=== PATIENT | male | born 1960 | race Caucasian/White ===

== ENCOUNTER 2017-10-05 23:37 | Observation (INO) | payer OTHER ==
[2017-10-06 00:17] LABS: Absolute Lymphocytes (CBC) 3.7 K/uL (0.7-4.9); Absolute Monocytes 2.1 K/uL (0.1-1.3); Absolute Neutrophil 8.1 K/uL (1.8-8.0); Basophils % 1.2 % (0-1.3); Eosinophils % 1.8 % (0-4.4); Hematocrit 42.9 % (39.6-49.0); MCH 29.7 pg (27.0-35.0); MPV 7.7 fL (7.6-11.3); Monocytes % 14.3 % (3.3-12.3); RBC Red Blood Cell Count 4.93 M/uL (4.33-5.43)
[2017-10-06 00:21] LABS: Protime INR 1.01
[2017-10-06] MEDS ORDERED: ASPIRIN 81 MG CHEWABLE TABLET ONE (00:27)
[2017-10-06 00:29] LABS: Potassium 3.8 mEq/L (3.6-5.0)
[2017-10-06 00:35] LABS: Albumin 3.9 g/dL (3.2-5.5); Bilirubin Direct 0.1 mg/dL (0-0.2); Bilirubin Total 0.6 mg/dL (0.3-1.2); Magnesium 1.9 mg/dL (1.8-2.5); Protein, Total 8.2 g/dL (6.0-8.3)
--- NOTE | 2017-10-06 01:13 | EDPHYS ---
Physician Documentation [facility] Name: Andrez Orantes Age: 57 yrs Sex: Male : 1960 Arrival Date: 10/05/2017 Time: 23:39 Bed 4 Private MD: ED Physician Malcom Schaefer Historical: - Allergies: 10/05 23:56 PENICILLINS; tl2 - Home Meds: 23:56 aspirin 81 mg Oral chew 1 tab once daily [Active]; atorvastatin 80 mg oral tab 1 tab tl2 once daily [Active]; metoprolol tartrate 25 mg oral tab .5 tabs 2 times per day [Active]; ticagrelor oral 90 mg oral 1 tab 2 times per day [Active]; Chantix 1 mg oral tab 1 tab 2 times per day [Active]; albuterol sulfate 2.5 mg /3 mL (0.083 %) Inhl nebu 3 mL 3 times per day [Active]; cyclobenzaprine 10 mg Oral tab 1 tab bedtime [Active]; lisinopril-hydrochlorothiazide 20-25 mg oral tab 1 tab once daily [Active]; methocarbamol 750 mg Oral tab 1 tab 4 times per day [Active]; Phenergan Oral 25 mg every 6 hours [Active]; cyanocobalamin (vitamin B-12) 1,000 mcg/15 mL oral liqd [Active]; Novi 5-325 mg Oral tab 2 tabs every 6 hours [Active]; gabapentin 300 mg oral cap 1 cap bedtime [Active]; - PMHx: 23:56 Asthma; basal cell carcinoma; COPD; Hypertension; interstitial lung disease; Myocardial tl2 infarction; - Immunization history:: Adult Immunizations up to date. - Social history:: Smoking status: Patient/guardian denies using tobacco, the patient reports quitting approximately 0 years ago, stopped smoking 5 days ago. Vital Signs: 23:56 BP 139 / 76; Pulse 81; Resp 20; Temp 97.9; Pulse Ox 95% on R/A; Weight 154.22 kg; tl2 Height 5 ft. 8 in. (172.72 cm); Pain 5/10; 10/06 00:54 BP 120 / 63; Pulse 82; Resp 18; Pulse Ox 97% on R/A; mt 01:48 BP 101 / 59; Pulse 72; Resp 14; Pulse Ox 96% on R/A; tl2 10/05 23:56 Body Mass Index 51.70 (154.22 kg, 172.72 cm) tl2 MDM: 10/05 23:48 Patient medically screened. ca 10/06 00:03 Order name: Basic Metabolic Panel ca 10/06 00:03 Order name: BNP ca 10/06 00:03 Order name: CBC with Diff ca 10/06 00:03 Order name: CPK ca 10/06 00:03 Order name: LFT's ca 10/06 00:03 Order name: Magnesium ca 10/06 00:03 Order name: PT-INR ca 10/06 00:03 Order name: Troponin (emerg Dept Use Only) ca 10/06 00:27 Order name: CBC with Automated Diff EDAZ 10/06 00:29 Order name: Protime (+INR) EDAZ 10/06 00:30 Order name: Basic Metabolic Panel EDAZ 10/06 00:36 Order name: Liver (Hepatic) Function EDMS 10/06 00:36 Order name: Creatine Phosphokinase EDAZ 10/06 00:36 Order name: Magnesium EDAZ 10/06 00:03 Order name: EKG; Complete Time: 00:05 ca 10/06 00:03 Order name: Cardiac monitoring; Complete Time: 00:04 ca 10/06 00:03 Order name: EKG - Nurse/Tech; Complete Time: 00:04 ca 10/06 00:03 Order name: IV Saline Lock; Complete Time: 00:23 ca 10/06 00:03 Order name: Labs collected and sent; Complete Time: 00:23 ca 10/06 00:03 Order name: O2 Per Protocol; Complete Time: 00:04 ca 10/06 00:03 Order name: O2 Sat Monitoring; Complete Time: 00:04 ca 10/06 00:03 Order name: Chest Pa And Lat (2 Views) XRAY ca 10/06 00:52 Order name: Troponin (Emerg Dept Use Only) EDAZ 10/06 00:54 Order name: BNP B-Type Natriuretic Peptide EDMS Administered Medications: 10/06 00:22 Drug: Aspirin Chewable Tablet 162 mg Route: PO; tl2 01:59 Follow up: Response: No adverse reaction tl2 00:22 Drug: Nitroglycerin 0.4 mg Route: Sublingual; tl2 01:59 Follow up: Response: No adverse reaction tl2 Disposition: 10/06/17 01:12 Hospitalization ordered by Riccardo Newman for Observation. Preliminary diagnosis are chest pain, shortness of breath. - Bed requested for Telemetry/MedSurg (observation). - Status is Observation. tl2 - Condition is Stable. - Problem is new. - Symptoms have improved. UTI on Admission? No Addendum: 10/18/2017 16:48 Addendum: CC: Shoulder pain. HPI: 57 yo M s/p MN 2 weeks ago with 100% blockage, s/p w a stents. c/o bilateral shoulder pain with tingling and numbness in both hands and fingers x 2 days. intermittent. lasts 10-15 min at at time. denies SOB or chest pain. states came in because wants to be sure he is ok. PMHx: Asthma. basal cell carcinoma. COPD. HTN. interstitial lung disease. MN. SHx: denies ETOH, tobacco, or recreational drug use. PSurgHx: s/p cardiac stents. All: PCN. Meds: ASA. atorvostatin. metoprolol. albuterol. chantix. lisinopril. HCTZ. ROS: noted for shoulder pain. bilateral numbness and tingling in upper extremities. otherwise all other systems reviewed and negative. Exam: Const: NAD. HEENT: normocephalic. neck supple. throat clear. mucosa moist. CVS: RRR. no murmurs. Chest: diminished BS bibasilar area. Abd: obese. soft. non-tender. Ext: no swelling or edema. non-tender. Neuro: CN II-XII intact. no deficits. Psych: pleasant. affect nml. DDx: r/o ACS. consider CHF. plan: monitor. ASA. EKG. CXR. labs. reassess. plan to admit for further adina by cardiology. pt s/p MN with stents with symptoms concerning for angina. Results: reviewed. discussed admission to [facility]. Pt accepted. Dx: chest pain. Signatures: Dispatcher [employer] Earlene Garcia RN RN Shelley Harry RN RN tl2 Malcom Schaefer MD MD wa
--- NOTE | 2017-10-06 01:13 | ER ---
Nurse's Notes [facility] Name: Andrez Orantes Age: 57 yrs Sex: Male : 1960 Arrival Date: 10/05/2017 Time: 23:39 Bed 4 Private MD: Diagnosis: chest pain;shortness of breath Presentation: 10/05 23:46 Presenting complaint: Patient states: I had a W[place] 2 weeks ago and had 100% blockage. I tl2 have pain in both of my shoulders and my arms feel numb. Pain is similar to when I had a [place]. Pt denies chest pain or shortness of breath. Transition of care: patient was not received from another setting of care. Onset of symptoms was October 05, 2017. Care prior to arrival: None. 23:46 Method Of Arrival: EMS: [facility] tl2 23:46 Acuity: SALINA 3 tl2 Triage Assessment: 23:56 General: Appears in no apparent distress. comfortable, Behavior is calm, cooperative, tl2 appropriate for age. Pain: Complains of pain in ALAN shoulders, back Pain Quality of pain is described as aching. Neuro: Level of Consciousness is awake, alert, obeys commands, Oriented to person, place, time, situation. Cardiovascular: Denies chest pain, Heart tones S1 S2 present Capillary refill < 3 seconds Rhythm is sinus rhythm with unifocal PVCs. Respiratory: Airway is patent Respiratory effort is even, unlabored, Respiratory pattern is regular, symmetrical, Denies shortness of breath. GI: No signs and/or symptoms were reported involving the gastrointestinal system. : No signs and/or symptoms were reported regarding the genitourinary system. Derm: Skin is pink, warm \T\ dry. Historical: - Allergies: 23:56 PENICILLINS; tl2 - Home Meds: 23:56 aspirin 81 mg Oral chew 1 tab once daily [Active]; atorvastatin 80 mg oral tab 1 tab tl2 once daily [Active]; metoprolol tartrate 25 mg oral tab .5 tabs 2 times per day [Active]; ticagrelor oral 90 mg oral 1 tab 2 times per day [Active]; Chantix 1 mg oral tab 1 tab 2 times per day [Active]; albuterol sulfate 2.5 mg /3 mL (0.083 %) Inhl nebu 3 mL 3 times per day [Active]; cyclobenzaprine 10 mg Oral tab 1 tab bedtime [Active]; lisinopril-hydrochlorothiazide 20-25 mg oral tab 1 tab once daily [Active]; methocarbamol 750 mg Oral tab 1 tab 4 times per day [Active]; Phenergan Oral 25 mg every 6 hours [Active]; cyanocobalamin (vitamin B-12) 1,000 mcg/15 mL oral liqd [Active]; Mart 5-325 mg Oral tab 2 tabs every 6 hours [Active]; gabapentin 300 mg oral cap 1 cap bedtime [Active]; - PMHx: 23:56 Asthma; basal cell carcinoma; COPD; Hypertension; interstitial lung disease; Myocardial tl2 infarction; - Immunization history:: Adult Immunizations up to date. - Social history:: Smoking status: Patient/guardian denies using tobacco, the patient reports quitting approximately 0 years ago, stopped smoking 5 days ago. Screenin/25 00:00 Abuse screen: Denies threats or abuse. Nutritional screening: No deficits noted. tl2 Tuberculosis screening: No symptoms or risk factors identified. Fall Risk Fall in past 12 months (25 points). IV access (20 points). Assessment: 00:00 General: see triage assessment. tl2 00:56 Reassessment: Patient appears in no apparent distress at this time. Patient and/or tl2 family updated on plan of care and expected duration. Pain level reassessed. Patient is alert, oriented x 3, equal unlabored respirations, skin warm/dry/pink. 01:56 Reassessment: Patient appears in no apparent distress at this time. Patient and/or tl2 family updated on plan of care and expected duration. Pain level reassessed. Patient is alert, oriented x 3, equal unlabored respirations, skin warm/dry/pink. PT stable and ready for transport to floor. Vital Signs: 10/05 23:56 BP 139 / 76; Pulse 81; Resp 20; Temp 97.9; Pulse Ox 95% on R/A; Weight 154.22 kg; tl2 Height 5 ft. 8 in. (172.72 cm); Pain /10; 10/06 00:54 BP 120 / 63; Pulse 82; Resp 18; Pulse Ox 97% on R/A; mt 01:48 BP 101 / 59; Pulse 72; Resp 14; Pulse Ox 96% on R/A; tl2 0324 23:56 Body Mass Index 51.70 (154.22 kg, 172.72 cm) tl2 ED Course: 10/05 23:39 Patient arrived in ED. 23:46 Shelley Harry RN is Primary Nurse. tl2 23:48 Malcom Schaefer MD is Attending Physician. wa 23:49 Triage completed. tl2 23:56 Arm band placed on right wrist. tl2 10/06 00:00 Patient has correct armband on for positive identification. Bed in low position. Call tl2 light in reach. Side rails up X2. property assessment monitor on. Pulse ox on. NIBP on. 00:00 Patient maintains SpO2 saturation greater than 95% on room air. tl2 00:10 Inserted saline lock: 20 gauge in left antecubital area, using aseptic technique. tl2 placed by JORGE Fraser. 00:10 Patient admitted, IV remains in place. tl2 00:42 X-ray completed. Portable x-ray completed in exam room. Patient tolerated procedure la2 well. 01:11 Riccardo Newman MD is Hospitalizing Provider. wa 01:56 No provider procedures requiring assistance completed. tl2 Administered Medications: 00:22 Drug: Aspirin Chewable Tablet 162 mg Route: PO; tl2 01:59 Follow up: Response: No adverse reaction tl2 00:22 Drug: Nitroglycerin 0.4 mg Route: Sublingual; tl2 01:59 Follow up: Response: No adverse reaction tl2 Outcome: 01:12 Decision to Hospitalize by Provider. mo 01:58 Admitted to Med/surg accompanied by tech, via stretcher, with chart, Report called to 2 Jenny 01:58 Condition: stable 01:58 Discharge instructions given to patient, Instructed on the need for admit. 01:59 Patient left the ED. tl2 Signatures: Lety Peoples RN RN Shelley Harry RN RN tl2 Sue Fonseca mt, William, MD MD mo Cristiana Patten la
[2017-10-06 01:59] VITALS: BMI 52.6
--- NOTE | 2017-10-06 05:11 | EKG ---
Test Date: 2017-10-05 Test Time: 23:46:47 Ammonium Sulfate Operator: ADRIA MEASUREMENT RESULTS: Intervals: Rate: 81 ND: 166 QRSD: 94 QT: 400 QTc: 464 [place]: P: 50 ND: 166 QRS: 114 T: 98 INTERPRETIVE STATEMENTS: Normal sinus rhythm Anterolateral infarct, age undetermined Abnormal ECG No previous ECG available for comparison Electronically Signed On 10-06-17 05:10:43 CDT by Abdullahi Carlos
[2017-10-06 05:24] LABS: Urine Appearance CLEAR; Urine Bilirubin NEGATIVE (NEG); Urine Blood NEGATIVE (NEG); Urine Color YELLOW; Urine Glucose NEGATIVE (NEG); Urine Microscopic Reflex NO UMIC; Urine Protein NEGATIVE (NEG); Urine Specific Gravity 1.025 (1.005-1.030); Urine Urobilinogen 0.2 mg/dL (0.2-1.0); Urine pH 5.5 (5.0-7.0)
[2017-10-06] MEDS ORDERED: ALBUTEROL 2.5 MG/3 ML NEB SOL NEB PRN (05:47)
[2017-10-06] MEDS ORDERED: ACETAMINOPHEN 500 MG TAB PO PRN (05:47)
[2017-10-06] MEDS ORDERED: ONDANSETRON 4 MG/2 ML VIAL IV PRN (05:47)
[2017-10-06] MEDS ORDERED: IPRATROPIUM BROM 0.5MG/2.5ML NEB PRN (05:47)
[2017-10-06] MEDS ORDERED: CYCLOBENZAPRINE 10 MG TAB PO PRN (08:42)
--- NOTE | 2017-10-06 08:43 | RAD REPORT ---
EXAM DESCRIPTION: RAD - Chest Single View - 10/06/2017 12:44 am CLINICAL HISTORY: Chest pain, bilateral arm numbness, history of recent NH COMPARISON: None. TECHNIQUE: AP portable chest image was obtained 0029 hours . FINDINGS: No peripheral mass, consolidation or significant pulmonary edema pattern. Interstitial [place] are mildly prominent with baseline for the patient unknown. Heart and vasculature are normal. N o measurable pleural effusion and no pneumothorax. No gross bony abnormality seen. No acute aortic fi ndings suspected. IMPRESSION: No mass, consolidation or prominent failure or pulmonary edema pattern. Interstitial markings are prominent with baseline for the patient unknown. Minimal interstitial edema or infiltrate cannot be excluded.
--- NOTE | 2017-10-06 08:49 | P.HP ---
Certification for Inpatient Patient admitted to: Observation With expected LOS: <2 Midnights Patient will require the following post-hospital care: None Practitioner: I am a practitioner with admitting privileges, knowledge of patient current condition, hospital course, and medical plan of care. Services: Services provided to patient in accordance with Admission requirements found in Title 42 Section 412.3 of the Code of Federal Regulations Patient History Date of Service: 10/06/17 Primary Care Provider: Dr. Salgado([facility], [place]) Reason for admission: Back pain, chest pain History of Present Illness: 57-year-old male presented emergency room with back pain. He reports that the back pain started between the shoulder blades. It would radiate to the center of the chest. He then reported some chest pain. Some numbness to the right arm and elbow and hand was noted. This pain was similar to an ID that he had 2 weeks ago. He reports that he was seen at [facility] for an ID. He had a heart catheterization done. A stent was placed to the proximal LAD. The patient denied any significant shortness of breath, headaches or dizziness. Patient with past medical history of hypertension, COPD , hyperlipidemia, interstitial lung disease, obstructive sleep apnea noncompliant with CPAP, and obesity. In the ER the patient was evaluated. Initial cardiac enzymes unremarkable. EKG showed normal sinus rhythm. Sodium 130. Chest x-ray unremarkable. Due to the nature of his symptoms and recent ID the patient was admitted for further evaluation. When I saw the patient in his room, the patient was without any significant chest pain or back pain. Patient reports that he does smoke but quit about 5 days ago. Allergies Penicillins Allergy (Verified 10/06/17 01:39) Unknown Sulfa (Sulfonamide Antibiotics) Adverse Reaction (Verified 10/06/17 01:39) Itching/Hives/Rash sulfamethoxazole [From Bactrim] Adverse Reaction (Verified 10/06/17 01:39) Itching/Hives/Rash trimethoprim [From Bactrim] Adverse Reaction (Verified 10/06/17 01:39) Itching/Hives/Rash Home medications list reviewed: Yes Home Medications: Albuterol Sulfate [Albuterol Sulfate 0.083% Neb Soln] 2.5 mg IH TID 10/06/17 Aspirin [Adult Low Dose Aspirin EC] 81 mg PO DAILY 10/06/17 Atorvastatin Calcium [Lipitor] 80 mg PO BEDTIME 10/06/17 Cyanocobalamin (Vitamin B-12) [Liquid B-12] 1,000 mcg PO DAILY 10/06/17 Cyclobenzaprine [Flexeril] 10 mg PO BEDTIME 10/06/17 Gabapentin [Gralise] 300 mg PO BEDTIME 10/06/17 Hydrocodone 5/APAP 325 [Post 5/325] 2 tab PO Q6H PRN 10/06/17 Lisinopril/Hydrochlorothiazide [Zestoretic 20-25 mg Tablet] 1 each PO DAILY Methocarbamol [Robaxin] 750 mg PO QID 10/06/17 Metoprolol Tartrate [Lopressor] 12.5 mg PO BID 10/06/17 Ticagrelor [Brilinta] 90 mg PO BID 10/06/17 Varenicline Tartrate [Chantix] 1 mg PO BID 10/06/17 - Past Medical/Surgical History Has patient received pneumonia vaccine in the past: No Diabetic: No -: COPD -: Obstructive sleep apnea non compliant with CPAP -: Interstitial lung disease -: HTN -: CAD with stent placement -: Hyperlipidemia -: Obesity -: 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 He has 1 child. - Family History Family History: Reviewed- Non-Contributory - Family History Mother History Unknown: Yes - Social History Smoking Status: Heavy Tobacco smoker (>10 cigarettes/day) Counseled patient to stop smoking for: less than 10 minutes Smoking therapy provided: Yes Patient receptive to therapy: Yes Alcohol use: No CD- Drugs: No Caffeine use: Yes Place of Residence: Home Review of Systems General: As per HPI Eyes: Unremarkable ENT: Unremarkable Respiratory: Unremarkable Cardiovascular: Chest Pain, As per HPI Gastrointestinal: Unremarkable Genitourinary: Unremarkable Musculoskeletal: Back Pain, As per HPI Integumentary: Unremarkable Neurological: Unremarkable Lymphatics: Unremarkable Physical Examination - Vital Signs Temperature: 97.7 F Blood Pressure: 92/44 Pulse: 78 Respirations: 20 Pulse Ox (%): 92 - Physical Exam General: Alert, In no apparent distress, Oriented x3, Cooperative HEENT: Atraumatic, Normocephalic, Mucous membr. moist/pink Neck: Supple Respiratory: Clear to auscultation bilaterally, Normal air movement Cardiovascular: Normal pulses, Regular rate/rhythm Gastrointestinal: Normal bowel sounds, Soft and benign, Non-distended, No ascites, No tenderness, No masses, No rebound, No guarding Musculoskeletal: No erythema, No tenderness, No warmth Integumentary: No tenderness/swelling, No erythema, No warmth, No cyanosis Neurological: Normal speech, Normal strength at 5/5 x4 extr, Normal tone, Normal affect Lymphatics: No axilla or inguinal lymphadenopathy - Studies Laboratory Data (last 24 hrs) 10/06/17 00:00: PT 11.9, INR 1.01 10/06/17 00:00: WBC 14.3 H, Hgb 14.6, Hct 42.9, Plt Count 359 10/06/17 00:00: B-Natriuretic Peptide 35 10/06/17 00:00: Sodium 130 L, Potassium 3.8, BUN 24 H, Creatinine 1.08, Glucose 106, Magnesium 1.9, Total Bilirubin 0.6, AST 24, ALT 21, Alkaline Phosphatase 92 Assessment and Plan - Problems (Diagnosis) (1) Back pain Current Visit: Yes Status: Acute Plan: Patient reported back pain with chest pain. Patient appears to have chronic back pain as he takes multiple muscle relaxers and chronic pain medication. Initial cardiac enzymes unremarkable. Patient with recent ID with stent placement to the proximal LAD. Will continue with his medications including aspirin, Brillinta, metoprolol and statin medication. Will hold lisinopril/ hydrochlorothiazide. Cardiology has been consulted. Await further recommendation. Possible discharge today if okay with cardiology. Patient plans to follow up with his assistant chief nursing officer this week Qualifiers: Back pain location: thoracic back pain Chronicity: acute Back pain laterality: unspecified Qualified Code(s): M54.6 - Pain in thoracic spine (2) Chest pain Current Visit: Yes Status: Acute Plan: Continue with above plan of care. Await cardiology evaluation. Likely discharge today. Qualifiers: Chest pain type: unspecified Qualified Code(s): R07.9 - Chest pain, unspecified (3) CAD (coronary artery disease) Current Visit: Yes Status: Chronic Plan: Patient with recent heart catheterization requiring stent to the proximal LAD. Await further recommendations from cardiology. Qualifiers: Coronary Disease-Associated Artery/Lesion type: unspecified vessel or lesion type [place] vs. transplanted heart: unspecified whether [place] or transplanted heart Associated angina: with unspecified angina Qualified Code (s): I25.119 - Atherosclerotic heart disease of [place] coronary artery with unspecified angina pectoris (4) Hypertension Current Visit: Yes Status: Chronic Plan: Will continue with metoprolol. Will hold lisinopril/hydrochlorothiazide. Await recommendations from cardiology. Qualifiers: Hypertension type: essential hypertension Qualified Code(s): I10 - Essential (primary) hypertension (5) Hyperlipidemia Current Visit: Yes Status: Chronic Plan: Will continue with his statin medication. Qualifiers: Hyperlipidemia type: unspecified Qualified Code(s): E78.5 - Hyperlipidemia , unspecified (6) COPD (chronic obstructive pulmonary disease) Current Visit: Yes Status: Chronic Plan: Will continue with medication. Qualifiers: COPD type: chronic bronchitis Chronic bronchitis type: unspecified Qualified Code(s): J42 - Unspecified chronic bronchitis (7) Obstructive sleep apnea Current Visit: Yes Status: Chronic Plan: Patient reports obstructive sleep apnea but he is non compliant with his CPAP. Compliance addressed in detail. (8) Obesity Current Visit: Yes Status: Chronic Plan: Patient will need lifestyle modification education. Qualifiers: Obesity type: due to excess calories Obesity classification: adult class 3 (BMI >= 40) Serious obesity comorbidity presence: with serious comorbidity Body mass index: BMI 50.0-59.9 Qualified Code(s): E66.01 - Morbid (severe) obesity due to excess calories; Z68.43 - Body mass index (BMI) 50-59.9 , adult; Z68.43 - Body mass index (BMI) 50-59.9 , adult; Z68.43 - Body mass index (BMI) 50-59.9 , adult; Z68.43 - Body mass index (BMI) 50-59.9 , adult (9) Interstitial lung disease Current Visit: Yes Status: Chronic Plan: Will continue with his medication. (10) Tobacco abuse Current Visit: Yes Status: Chronic Plan: Will continue with tobacco cessation education. Will continue his Chantix (11) Hyponatremia Current Visit: Yes Status: Acute Plan: This is likely from lisinopril and hydrochlorothiazide. This has been discontinued. Medications will likely need to be adjusted at discharge. Discharge Plan: Home Plan to discharge in: 24 Hours - Advance Directives Does patient have a Living Will: No Does patient have a Durable POA for Healthcare: No - Code Status/Comfort Care Code Status Assessed: Yes Time Spent Managing Pts Care (In Minutes): 55
[2017-10-06] MEDS: ENOXAPARIN 40 MG/0.4 ML SQ SCH ×2 (09:00→09:49)
[2017-10-06] MEDS ORDERED: CYANOCOBALAMIN 1000 MCG PO SCH (09:00)
[2017-10-06] MEDS: HOME MED 1 EA UNK (Varenicline Tartrate [Chantix] 1 MG) PO SCH ×2 (09:00→21:00)
[2017-10-06] MEDS: TICAGRELOR 90 MG TABLET PO SCH ×2 (09:47→21:03)
[2017-10-06] MEDS: ASPIRIN EC 81 MG TAB PO SCH (09:47)
[2017-10-06] MEDS: PANTOPRAZOLE 40MG TABLET PO SCH (09:48)
[2017-10-06] MEDS: METOPROLOL TAR 25 MG TAB PO SCH ×2 (09:48→21:00)
[2017-10-06] MEDS: CYANOCOBALAMIN 1,000 MCG TAB PO SCH (09:48)
[2017-10-06] MEDS: HYDROCODONE/APAP 5/325 MG TAB PO PRN ×2 (09:49→16:36)
[2017-10-06] MEDS: ARFORMOTEROL TARTRATE 15 MCG/2 ML VIAL.NEB NEB SCH ×2 (09:56→19:23)
--- NOTE | 2017-10-06 17:01 | CON ---
History Of Present Illness: Mr. Orantes came to the hospital with very atypical chest pain. It was in the back, close to the left shoulder blade. It radiated to his throat, front part of his chest, f leeting, pleuritic-type chest pains, but no real marked difference depending on body position, arm po sition, deep breath supine or sitting, but the pains are fleeting. Since he has been here in the [facility], his cardiac enzymes were normal. He reports that 2 weeks ago, he had similar pains, went to [facility]. They told him, he was having an acute ME and put a stent in his artery. There was a total occl usion. A stent was put in and since then, he has been feeling fine until yesterday, when he had this pain. He has a history of obesity. 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 He says it was not myeloma. He had extensive surgery, but no chemo or radiation. He is still able to see out of both eyes and does not have double vision. Outpatient Medications: Hydrocodone, vitamin B12, Robaxin, lisinopril, hydrochlorothiazide, cycloben zaprine, Chantix, albuterol, Brilinta, metoprolol, atorvastatin 80, aspirin 81, and gabapentin 300 mg once a day at bedtime. Allergies: HE REPORTS DRUG INTOLERANCE TO PENICILLIN AND SULFAMETHOXAZOLE TYPE ANTIBIOTICS. Physical Examination: Vital Signs: 5 feet 8 inches, 346 pounds. HEENT: Reveals some exophthalmos on the right. Lid movement is normal. No carotid bruit. Lungs: No crackles or wheeze. Heart Exam: Within normal limits. Abdomen: Soft. Diagnostic Data: His electrocardiogram shows sinus rhythm, anterolateral infarct, age unknown. Ches t x-ray reveals no abnormalities. Impression: Mr. Orantes probably is not having an acute coronary syndrome. We need to make sure we continue the Brilinta, aspirin, atorvastatin, all the medicines for somebody who has recently had a s tent, that were appropriate and need to be continued. We will do a pharmacologic nuclear stress test and an echocardiogram tomorrow and see if we have any reason that we might want to redo a cardiac ca th. Right now, I suspect these are known coronary symptoms. BALA/LUPILLO Voice ID: [id number] Report ID: [id number]
[2017-10-06] MEDS: METHOCARBAMOL 750 MG TAB PO PRN (18:51)
[2017-10-06] MEDS ORDERED: ATORVASTATIN 80 MG TAB PO SCH (21:00)
[2017-10-06] MEDS ORDERED: HOME MED 1 EA UNK (Gabapentin [Gralise] 300 MG) PO SCH (21:00)
[2017-10-07 04:30] VITALS: O2SAT 96
[2017-10-07 05:38] LABS: Absolute Lymphocytes (CBC) 2.9 K/uL (0.7-4.9); Absolute Monocytes 1.6 K/uL (0.1-1.3); Absolute Neutrophil 5.8 K/uL (1.8-8.0); Basophils % 0.6 % (0-1.3); Eosinophils % 1.8 % (0-4.4); Hematocrit 42.8 % (39.6-49.0); MCH 29.7 pg (27.0-35.0); MCV 89.1 fL (80-100); Monocytes % 15.2 % (3.3-12.3); RBC Red Blood Cell Count 4.81 M/uL (4.33-5.43)
[2017-10-07 06:08] LABS: Urine White Blood Cell Casts OK
[2017-10-07 06:09] LABS: Blood Morphology Comment NOT SEEN (NOT SEEN); Platelet Estimate ADEQ
[2017-10-07] MEDS: ARFORMOTEROL TARTRATE 15 MCG/2 ML VIAL.NEB NEB SCH (08:00)
[2017-10-07] MEDS: ENOXAPARIN 40 MG/0.4 ML SQ SCH ×2 (09:00→09:09)
[2017-10-07] MEDS: HOME MED 1 EA UNK (Varenicline Tartrate [Chantix] 1 MG) PO SCH (09:00)
[2017-10-07] MEDS: PANTOPRAZOLE 40MG TABLET PO SCH (09:07)
[2017-10-07] MEDS: ASPIRIN EC 81 MG TAB PO SCH (09:07)
[2017-10-07] MEDS: METOPROLOL TAR 25 MG TAB PO SCH (09:07)
[2017-10-07] MEDS: TICAGRELOR 90 MG TABLET PO SCH (09:08)
[2017-10-07] MEDS: CYANOCOBALAMIN 1,000 MCG TAB PO SCH (09:08)
[2017-10-07] MEDS: METHOCARBAMOL 750 MG TAB PO PRN (10:23)
[2017-10-07] MEDS: HYDROCODONE/APAP 5/325 MG TAB PO PRN (10:23)
--- NOTE | 2017-10-07 15:18 | P.DS ---
Admission Date: 10/06/17 Discharge Date: 10/07/17 Primary Care Provider: Dr. Salgado([facility]) Disposition: ROUTINE DISCHARGE Discharge Condition: FAIR Reason for Admission: Back pain, chest pain - Problems (1) Chest pain Onset Date: 10/07/17 Current Visit: Yes Status: Acute Qualifiers: Chest pain type: unspecified Qualified Code(s): R07.9 - Chest pain, unspecified (2) Hyponatremia Onset Date: 10/07/17 Current Visit: Yes Status: Acute (3) CAD (coronary artery disease) Onset Date: 10/07/17 Current Visit: Yes Status: Chronic Qualifiers: Coronary Disease-Associated Artery/Lesion type: unspecified vessel or lesion type [place] vs. transplanted heart: unspecified whether [place] or transplanted heart Associated angina: with unspecified angina Qualified Code (s): I25.119 - Atherosclerotic heart disease of [place] coronary artery with unspecified angina pectoris (4) COPD (chronic obstructive pulmonary disease) Onset Date: 10/07/17 Current Visit: Yes Status: Chronic Qualifiers: COPD type: chronic bronchitis Chronic bronchitis type: unspecified Qualified Code(s): J42 - Unspecified chronic bronchitis (5) Hyperlipidemia Onset Date: 10/07/17 Current Visit: Yes Status: Chronic Qualifiers: Hyperlipidemia type: unspecified Qualified Code(s): E78.5 - Hyperlipidemia , unspecified (6) Hypertension Onset Date: 10/07/17 Current Visit: Yes Status: Chronic Qualifiers: Hypertension type: essential hypertension Qualified Code(s): I10 - Essential (primary) hypertension (7) Interstitial lung disease Onset Date: 10/07/17 Current Visit: Yes Status: Chronic (8) Obstructive sleep apnea Onset Date: 10/07/17 Current Visit: Yes Status: Chronic (9) Tobacco abuse Onset Date: 10/07/17 Current Visit: Yes Status: Chronic Brief History of Present Illness: 57-year-old male presented emergency room with back pain. He reports that the back pain started between the shoulder blades. It would radiate to the center of the chest. He then reported some chest pain. Some numbness to the right arm and elbow and hand was noted. This pain was similar to an NC that he had 2 weeks ago. He reports that he was seen at [facility] for an NC. He had a heart catheterization done. A stent was placed to the proximal LAD. The patient denied any significant shortness of breath, headaches or dizziness. Patient with past medical history of hypertension, COPD , hyperlipidemia, interstitial lung disease, obstructive sleep apnea noncompliant with CPAP, and obesity. Hospital Course: The patient admitted hospital. Troponin was negative for 3 times. The patient saw Dr Carlos who order echocardiogram and stress test. 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 Currently patient no more chest pain or short of breath. I believe that she is clinically stable to be discharged home with a close follow with Cardiology at [facility] for further testing in the outpatient Vital Signs/Physical Exam: Temp Pulse Resp BP Pulse Ox 98.5 F 81 16 109/57 L 95 10/07/17 08:00 10/07/17 09:07 10/07/17 08:00 10/07/17 09:07 10/07/17 08:00 General: Alert, In no apparent distress HEENT: Atraumatic, PERRLA, EOMI Neck: Supple, JVD not distended Respiratory: Clear to auscultation bilaterally, Normal air movement Cardiovascular: Regular rate/rhythm, Normal S1 S2 Gastrointestinal: Normal bowel sounds, No tenderness Musculoskeletal: No tenderness Integumentary: No rashes Neurological: Normal speech, Normal tone, Normal affect Lymphatics: No axilla or inguinal lymphadenopathy Laboratory Data at Discharge: WBC 10.6 K/uL (4.3-10.9) D 10/07/17 04:38 Hgb 14.3 g/dL (13.6-17.9) 10/07/17 04:38 Hct 42.8 % (39.6-49.0) 10/07/17 04:38 Plt Count 298 K/uL (152-406) 10/07/17 04:38 PT 11.9 SECONDS (9.5-12.5) 10/06/17 00:00 INR 1.01 10/06/17 00:00 Sodium 134 mEq/L (135-145) L 10/07/17 04:38 Potassium 4.0 mEq/L (3.6-5.0) 10/07/17 04:38 BUN 21 mg/dL (6-20) H 10/07/17 04:38 Creatinine 0.98 mg/dL (0.61-1.24) 10/07/17 04:38 Glucose 100 mg/dL (65-120) 10/07/17 04:38 Magnesium 1.9 mg/dL (1.8-2.5) 10/06/17 00:00 Total Bilirubin 0.6 mg/dL (0.3-1.2) 10/06/17 00:00 AST 24 IU/L (10-42) 10/06/17 00:00 ALT 21 IU/L (10-60) 10/06/17 00:00 Alkaline Phosphatase 92 IU/L (42-121) 10/06/17 00:00 Troponin I < 0.03 ng/mL (<0.03) 10/06/17 16:11 B-Natriuretic Peptide 35 pg/ml (<=100) 10/06/17 00:00 Triglycerides 100 mg/dL (35-160) 10/07/17 04:38 Cholesterol 75 mg/dL (<200) 10/07/17 04:38 HDL Cholesterol 26 mg/dL (27-67) L 10/07/17 04:38 Cholesterol/HDL Ratio 2.88 10/07/17 04:38 Home Medications: Albuterol Sulfate [Albuterol Sulfate 0.083% Neb Soln] 2.5 mg IH TID 10/06/17 Aspirin [Adult Low Dose Aspirin EC] 81 mg PO DAILY 10/06/17 Atorvastatin Calcium [Lipitor] 80 mg PO BEDTIME 10/06/17 Cyanocobalamin (Vitamin B-12) [Liquid B-12] 1,000 mcg PO DAILY 10/06/17 Cyclobenzaprine [Flexeril*] 10 mg PO BEDTIME 10/06/17 Gabapentin [Gralise] 300 mg PO BEDTIME 10/06/17 Hydrocodone 5/APAP 325 [[place] 5/325*] 2 tab PO Q6H PRN 10/06/17 Lisinopril/Hydrochlorothiazide [Zestoretic 20-25 mg Tablet] 1 each PO DAILY Methocarbamol [Robaxin*] 750 mg PO QID 10/06/17 Metoprolol Tartrate [Lopressor*] 12.5 mg PO BID 10/06/17 Ticagrelor [Brilinta*] 90 mg PO BID 10/06/17 Varenicline Tartrate [Chantix] 1 mg PO BID 10/06/17 Albuterol Neb [Proventil 0.083% Neb Soln] 2.5 mg NEB [id number] PRN amp 10/07/17 Arformoterol Tartrate [Brovana] 15 mcg NEB BIDRESP vial.neb 10/07/17 Diet: Regular Activity: Ad radhames Time spent managing pt's care (in minutes): 15
[2017-10-07 17:21] VITALS: BP 134/70; TEMP 96.4
== END 2017-10-07 16:04 | disposition home or self-care (01) ==
LOC: ER 23:37 → ERHOLD 10-06 01:15 → 2ND 10-06 01:30
PROVIDERS: ADMIT Internal Medicine; ATTEND Family Medicine
DX: R07.9 Chest pain, unspecified (principal); E87.1 Hypo-osmolality and hyponatremia; I25.10 Atherosclerotic heart disease of native coronary artery without angina pectoris; I25.2 Old myocardial infarction; J44.9 Chronic obstructive pulmonary disease, unspecified; J84.9 Interstitial pulmonary disease, unspecified; E78.5 Hyperlipidemia, unspecified; G47.33 Obstructive sleep apnea (adult) (pediatric); E66.9 Obesity, unspecified; Z68.43 Body mass index [BMI] 50.0-59.9, adult; M54.9 Dorsalgia, unspecified; F17.210 Nicotine dependence, cigarettes, uncomplicated; Z95.5 Presence of coronary angioplasty implant and graft; Z88.0 Allergy status to penicillin; Z88.2 Allergy status to sulfonamides
CPT/HCPCS: 36415; 71045; 80048; 80061; 80076; 81003; 82550; 82553; 83735; 83880; 84484; 85025; 85610; 93005; 94640; 94760; 99285; G0378; J1650; J7605

== ENCOUNTER 2021-08-15 16:29 | Inpatient (IN) | payer OTHER ==
--- OUTSIDE RECORDS SUMMARY | 2021-08-15 16:34 | XMS REPORT | Continuity of Care Document ---
:1960 Author Organization [facility] t Address [address] [place] [address] Care Team Providers Name Role Phone [phone] Primary Care Physician Unavailable KT Attending Clinician Unavailable Bladimir ASTUDILLO Attending Clinician Unavailable Allen CHRISTOPHER, A Attending Clinician Higinio Cheek LMSW Attending Clinician Ish DAVALOS, A Attending Clinician Casey CHRISTOPHER Attending Clinician ARIA Attending Clinician Unavailable Payers Payer Name Policy Type Policy Number Effective Date Expiration Date S tiffany [facility] [place] STAR [id number] 2016 PLUS 00:00:00 [place] [id number] 2014 [facility] 00:00:00 [facility] MEDICAID STAR PLUS [id number] /2014-Present[id number] [id number] id Problems Condition Condition Condition Status Onset Resolution Last Treating Co mments Source Name Details Category Date Date Treatment Clinician Date Elevated Elevated Disease Active Unive rs brain brain 1-20 ity of natriureti natriureti [place] c peptide c peptide 00 Medi lynn (BNP) (BNP) Branch level level DILLON DILLON Disease Active Univers (dyspnea (dyspnea 1-20 ity of on on 00:00: [place] exertion) exertion) 00 [facility] Branch SOB SOB Disease Active Univers (shortness (shortness 1-20 it y of of breath) of breath) 00:00: [place] 00 [facility] COPD COPD Disease Active Univers exacerbati exacerbati 1-19 it y of on on 00:00: [place] 00 Medical Branch Cervical Cervical Disease Active 2020-07 Unive rs radiculopa radiculopa 0-15 it y of thy thy 00:00: [place] 00 Medical Branch Polyarthri Polyarthri Disease Active 2020-07 U nivers tis with tis with 0-15 ity of positive positive 00:00: [place] rheumatoid rheumatoid 00 Me dical factor factor Branch At risk of At risk of Disease Active U nivers pressure pressure 8-17 ity of ulcer ulcer 00:00: [place] 00 Medical Branch Tobacco Tobacco Disease Active 2019-07 Univers dependency dependency 1-22 it y of 00:00: [place] 00 Medical Branch Cigarette Cigarette Disease Active 2019-07 Uni vers nicotine nicotine 1-22 ity of dependence dependence 00:00: [place] without without 00 Medical complicati complicati Br anch on on 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 1-22 ity of disease disease 00:00: [place] involving involving 00 [facility] sycuan sycuan Branch coronary coronary artery of artery of sycuan sycuan heart heart without without angina angina pectoris pectoris History of History of Disease Active 2019-07 U nivers meniscal meniscal 1-22 ity of tear tear 00:00: [place] 00 Medical Branch Polyarthri Polyarthri Disease Active 2019-07 U nivers tis tis 1-22 ity of 00:00: [place] [facility] Cough Cough Disease Active 2019-07 Univers syncope syncope 1-22 ity of 00:00: [place] 00 Medical Branch Interstiti Interstiti Disease Active 2019-07 U nivers al lung al lung 1-22 ity of disease disease 00:00: [place] 00 Medical Branch Breast Breast Disease Active 2019-07 Univers swelling swelling 1-22 ity of 00:00: [place] 00 Medical Branch Screening Screening Disease Active 2018-07 Overview: for for 0-02 Formattin Anderso malignant malignant 00:00: g of this n neoplasms neoplasms 00 note of colon of colon might be different from the original. 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 00:00: [place] syndrome syndrome 00 Medica l Branch Pure Pure Disease Active Univers hyperchole hyperchole 5-24 it y of sterolemia sterolemia 00:00: [place] 00 [facility] Chronic Chronic Disease Active Univers diastolic diastolic 3-07 ity of heart heart 00:00: [place] failure failure 00 Medical Branch Chronic Chronic Disease Active Univers combined combined 3-07 ity of systolic systolic 00:00: [place] and and 00 Medical diastolic diastolic Bran ch heart heart failure failure Morbid Morbid Disease Active Univers obesity obesity 3-05 ity of with body with body 00:00[place] mass index mass index 00 Me dical of of Branch 40.0-49.9 40.0-49.9 Morbid Morbid Disease Active Univers obesity obesity 3-05 ity of with body with body 00:00[place] mass index mass index 00 Me dical of of Branch 40.0-49.9 40.0-49.9 Lesion of Lesion of Disease Active 2016-07 Overview: MD upper upper 1-21 Formattin Anderso eyelid eyelid 00:00: g of this n 00 note might be different from the original. Added automatic ally from request for surgery [id number] CARLOS MANUEL CARLOS MANUEL Disease Active Univers (obstructi (obstructi 4-21 it y of ve sleep ve sleep 00:00: [place] apnea) apnea) 00 Medical Branch Nicotine Nicotine Disease Active 2015-07 MD dependence dependence 0-24 An derso 00:00: n 00 Tobacco Tobacco Disease Active MD dependence dependence 9-30 An derso syndrome syndrome 00:00: n 00 Neurogenic Neurogenic Disease Active U nivers pain pain 4-13 ity of 00:00: [place] 00 Medical Branch Back pain Back pain Disease Active Uni vers 9-27 ity of 00:00: [place] 00 Medical Branch COPD COPD Disease Active Univers (chronic (chronic 9-26 ity of obstructiv obstructiv 00:00: [place] e e 00 Medical pulmonary pulmonary Bran ch disease) disease) Sleep Sleep Disease Active Univers apnea, apnea, 9-26 ity of obstructiv obstructiv 00:00: [place] e e 00 Medical Branch HTN HTN Disease Active Univers (hypertens (hypertens 1-18 it y of ion) ion) 00:00: [place] 00 Medical Branch Basal cell Basal cell Disease Active U nivers carcinoma carcinoma 1-18 ity of 00:00: [place] 00 Medical Branch Chronic Chronic Disease Active Univers musculoske musculoske 1-18 it y of letal pain letal pain 00:00: [place] 00 [facility] STEMI (ST STEMI (ST Disease Resolve 2020-06-05 2020-06-06 Univers elevation elevation d 3-05 00:00:00 01:20:44 ity of myocardial myocardial 00:00: [place] infarction infarction 00 Me dical ) ) Branch Acute pain Acute pain Disease Resolve 2020-06-05 2020-06-06 Univers of left of left d 9-14 00:00:00 01:19:05 ity of knee knee 00:00: [place] 00 Medical Branch Complex Complex Disease Resolve 2020-06-05 2020-06-06 Univers tear of tear of d 7-11 00:00:00 01:20:26 ity of medial medial 00:00: [place] meniscus meniscus 00 Medica l of left of left Branch knee, knee, unspecifie unspecifie d whether d whether old or old or current current tear, tear, initial initial encounter encounter Left Left Disease Resolve 2020-06-05 2020-06-06 Univers shoulder shoulder d 4-13 00:00:00 01:19:56 it y of pain pain 00:00: [place] 00 Medical Branch Weakness Weakness Disease Resolve 2020-06-05 2020-06-06 Univers of left of left d 4-13 00:00:00 01:21:01 ity of upper upper 00:00: [place] extremity extremity 00 [facility] Branch Cellulitis Cellulitis Disease Resolve 2020-06-05 2020-06-06 Univers d 9-26 00:00:00 01:19:19 ity of 00:00: [place] 00 Medical Branch Wheeze Wheeze Disease Resolve 2020-06-05 2020-06-06 Univers d 1-18 00:00:00 01:21:03 ity of 00:00: [place] [facility] Cellulitis Cellulitis Disease Resolve 2020-06-05 2020-06-06 Univers of eyelid, of eyelid, d 1-17 00:00:00 01:19:17 ity of right right 00:00: [place] [facility] Periorbita Periorbita Disease Resolve 2013-072020-06-05 2020-06-06 Univers l l d 00:00:00 01:20:37 ity of cellulitis cellulitis 00:00: [place] [facility] [place] Hypertensi Hypertensi Disease Resolve 2013-072020-06-05 2020-06-06 Univers ve urgency ve urgency d 00:00:00 01:19:40 ity of 00:00: [place] 00 Medical Branch Allergies, Adverse Reactions, Alerts Allergy Allergy Status Severity Reaction(s) Onset Inactive Treating Comm ents Source Name Type Date Date Clinician Tree Food Active Anaphylaxis Unive rs Nuts Allergy - ity of 00:00: [place] 00 Medical Branch TREE Food Active Anaphylaxis Unive rs NUTS 3-19 ity of 00:00: [place] 00 Medical Branch Avocado Propensi Active Hives Univers (Laurus ty to 3-02 ity of Persea) adverse 00:00: [place] reaction 00 Medical s Branch Melon Propensi Active Rash Honeydew, Unive rs ty to 3- muskmelon ity of adverse 00:00: , and [place] reaction 00 cantalope Medic al s Branch AVOCADO Drug Active Hives Univers (LAURUS Class 3-02 ity of PERSEA) 00:00: [place] 00 Medical Branch MELON DRUG Active Low Rash Univers INGREDI 3-02 ity of 00:00: [place] 00 Medical Branch Bee Propensi Active Shortness of Unknown, Univers Venom ty to Breath 09-18 told ity of Protein adverse 00:00: since [place] (Honey reaction 00 childhood Medic al Bee) s Other Branch reaction( s): Other (See Comments) Unknown, told since childhood Penicill Propensi Active Other - See Unknown, Univers in G ty to comments 09-18 has been ity of adverse 00:00: told [place] reaction 00 since Medical s childhood Branch BEE DRUG Active High Other-Cmnt Univer s VENOM INGREDI 09-18 ity of PROTEIN 00:00: [place] (HONEY 00 Medical BEE) Branch PENICILL DRUG Active Other-Cmnt Univ ers IN G INGREDI 09-18 ity of 00:00: [place] 00 Medical Branch Rhubarb Propensi Active Hives Hives; Univers ty to 04-11 nausea/vo ity of adverse 00:00: mitingOth [place] reaction 00 er Medical s reaction( Branch s): GI Intoleran ce Squash Propensi Active Hives Pt. Univers ty to 04-11 States ity of adverse 00:00: Hive; [place] reaction 00 Nausea/[facility] and Zucchini RHUBARB DRUG Active Hives Univers INGREDI 04-11 ity of 00:00: [place] 00 Medical Branch SQUASH DRUG Active Hives Univers INGREDI 04-11 ity of 00:00: [place] 00 Medical Branch Sulfamet Propensi Active Itching Reported Uni vers hoxazole ty to 08-01 having ity of adverse 00:00: hives and [place] reaction 00 nausea Medical s with Branch Bactrim DS Trimetho Propensi Active Nausea Reported Univ ers prim ty to and/or 08-01 having ity of adverse Vomiting 00:00: hives and [place] reaction 00 nausea Medical s with Branch Bactrim DS SULFAMET DRUG Active Hives Univers HOXAZOLE INGREDI 08-01 ity of 00:00: [place] 00 Medical Branch TRIMETHO DRUG Active Hives Univers PRIM INGREDI 18 ity of 00:00: [place] 00 Medical Branch Penicill Propensi Active Unknown - 2013-07 Since I Un qian ins ty to See comments 0 was a ity of adverse 00:00: child [place] reaction 00 Medical s Branch PENICILL Drug Active Unknown-Cmnt 2013-07 Un qian INS Class 0-22 ity of 00:00: [place] 00 Medical Branch Family History Family Member Diagnosis Comments Start Date Stop Date Source Natural sister Breast cancer Raymundo rson Social History Social Habit Start Date Stop Date Quantity Comments Source Exposure to Not sure University of SARS-CoV-2 (event) [facility] Cigarette 2020-06-05 2020-06-05 University of pack-years 00:00:00 00:00:00 [facility] Alcohol intake 2019-04-14 2019-04-14 Current MD Jf mcguire 00:00:00 00:00:00 non-drinker of alcohol (finding) History of tobacco 2017-09-12 Cigarette Smoker University of use 00:00:00 [facility] Tobacco Comment 2016-05-04 2016-05-04 has cut down MD Raymundo dominguez 00:00:00 00:00:00 from 20 cpd Cigarettes smoked 2015-09-19 2015-09-19 MD Raymundo dominguez current (pack per 00:00:00 00:00:00 day) - Reported Tobacco use and 2015-09-19 2015-09-19 Smokeless MD [place] on exposure 00:00:00 00:00:00 tobacco non-user Sex [birth year] MD [place] on 00:00:00 00:00:00 Smoking Status Start Date Stop Date Source Current every day smoker 2020-06-05 00:00:00 Uni versity of [facility] Medications Ordered Filled Start Stop Current Ordering Indication Dosage Frequency Signature Comments Components Source Medication Medication Date Date Medication? Clinician (SIG) Name Name NITROGLYCER Yes [id number] PLACE 1 Univers IN 0.4 mg 1-27 TABLET ity of sublingual 00:00: UNDER [place] tablet 00 TONGUE Medical EVERY 5 Branch MINUTES NEEDED FOR CHEST PAIN albuterol Yes 2.5mg Inhale 3 Uni vers 2.5 mg /3 1-25 mL every 4 ity of mL (0.083 00:00: (four) [place] %) 00 hours as Medical nebulizer needed for Bran ch solution Wheezing or Shortness of Breath. ipratropium Yes .5mg Inhale 2.5 Univers 0.02 % 1-25 mL every 4 ity of nebulizer 00:00: (four) [place] solution 00 hours as Medical needed for Branch Wheezing or Shortness of Breath. metoprolol Yes [id number] 25mg Take 1 U nivers succinate 1-25 tablet by ity o f XL 25 mg 24 00:00: mouth [place] hr tablet 00 daily. Medical Branch ibuprofen Yes [id number] TAKE 1 U nivers 800 mg 1-25 TABLET BY ity of tablet 00:00: MOUTH [place] 00 EVERY 8 Medical HOURS Branch NEEDED FOR PAIN. Take with food and use sparingly due to possible side effects. albuterol Yes 2.5mg Inhale 3 Uni vers 2.5 mg /3 1-25 mL every 4 ity of mL (0.083 00:00: (four) [place] %) 00 hours as Medical nebulizer needed for Bran ch solution Wheezing or Shortness of Breath. ipratropium Yes .5mg Inhale 2.5 Univers 0.02 % 1-25 mL every 4 ity of nebulizer 00:00: (four) [place] solution 00 hours as Medical needed for Branch Wheezing or Shortness of Breath. metoprolol Yes [id number] 25mg Take 1 U nivers succinate 1-25 tablet by ity o f XL 25 mg 24 00:00: mouth [place] hr tablet 00 daily. Medical Branch KCL 20 mEq 2021- Yes [id number] 20meq Take 1 Univers tablet 08-05 tablet by ity of 00:00: 05:59 mouth [place] 00 :00 daily for Medical 30 days. Branch nicotine 14 2021- Yes [id number] 1{patch Apply 1 Univers mg/24 hr 08-05 } Patch to ity of patch 00:00: 05:59 area(s) [place] 00 :00 every 24 Medical (twenty-fo Branch ur) hours for 30 days. KCL 20 mEq 2021- Yes [id number] 20meq Take 1 Univers tablet 08-05 tablet by ity of 00:00: 05:59 mouth [place] 00 :00 daily for Medical 30 days. Branch nicotine 14 2021- Yes [id number] 1{patch Apply 1 Univers mg/24 hr 08-05- } Patch to ity of patch 00:00: 05:59 area(s) [place] 00 :00 every 24 Medical (twenty-fo Branch ur) hours for 30 days. predniSONE 2021- No [id number] 50mg Take 1 Univers 50 mg 08-05 tablet by ity of tablet 00:00: 05:59 mouth [place] 00 :00 daily for Medical 3 days. Branch cyanocobala Yes Take by Un qian min, 1-21 mouth. ity of vitamin 12:51: [place] B-12, 40 Medical (VITAMIN Branch B12 ORAL) multivit-mi 0 Yes Take by Un qian n/FA/lycope 1-21 mouth. ity of n/lutein 12:51: [place] (CENTRUM 40 Medical SILVER MEN Branch ORAL) cyanocobala Yes Take by Un qian min, 1-21 mouth. ity of vitamin 12:51: [place] B-12, 40 Medical (VITAMIN Branch B12 ORAL) multivit-mi Yes Take by Un qian n/FA/lycope 1-21 mouth. ity of n/lutein 12:51: [place] (CENTRUM 40 Medical SILVER MEN Branch ORAL) benzonatate Yes [id number] 100mg Take 1 Univers 100 mg 1-21 capsule by ity of capsule 00:00: mouth [place] 00 every 8 Medical (eight) Branch hours as needed for Cough. nystatin Yes [id number] Apply to Univers 100,000 1-21 area(s) 2 ity of unit/gram 00:00: (two) [place] powder 00 times Medical daily. Branch benzonatate Yes [id number] 100mg Take 1 Univers 100 mg 1-21 capsule by ity of capsule 00:00: mouth [place] 00 every 8 Medical (eight) Branch hours as needed for Cough. nystatin Yes [id number] Apply to Univers 100,000 1-21 area(s) 2 ity of unit/gram 00:00: (two) [place] powder 00 times Medical daily. Branch PROAIR HFA Yes [id number] 2{puff} Inhale 2 Univers 90 1-19 Puffs ity of mcg/actuati 00:00: every 6 [place] as on inhaler 00 (six) Medical hours as Branch needed for Wheezing or Shortness of Breath. PROAIR HFA Yes [id number] 2{puff} Inhale 2 Univers 90 1-19 Puffs ity of mcg/actuati 00:00: every 6 [place] as on inhaler 00 (six) Medical hours as Branch needed for Wheezing or Shortness of Breath. ASPIRIN 81 2020-07 Yes [id number] CHEW AND Univers mg chewable 2-02 SWALLOW 1 ity of tablet 00:00: TABLET BY [place] 00 MOUTH Medical EVERY DAY Branch ASPIRIN 81 2020-07 Yes [id number] CHEW AND Univers mg chewable 2-02 SWALLOW 1 ity of tablet 00:00: TABLET BY [place] 00 MOUTH Medical EVERY DAY Branch nitroglycer 2020-[id number] 1 Univers in 0.4 mg 1-30 TABLET ity of sublingual 00:00: UNDER [place] tablet 00 TONGUE Medical EVERY 5 Branch MINUTES NEEDED FOR CHEST PAIN nitroglycer 2020-07- No [id number] PLACE 1 Univers in 0.4 mg 1-30 01-27 TABLET ity of sublingual 00:00: 00:00 UNDER [place] tablet 00 :00 TONGUE Medical EVERY 5 Branch MINUTES NEEDED FOR CHEST PAIN albuterol-i Yes [id number] 2{puff} Inhale 2 Univers pratropium 8-12 Puffs 4 ity of (COMBIVENT 00:00: (four) [place] RESPIMAT) 00 times Medical 20-100 daily. Branch mcg/actuati on inhaler budesonide- Yes [id number] INHALE 2 Univers formoteroL 8-12 PUFFS BY ity o f (SYMBICORT) 00:00: MOUTH [place] 80-4.5 00 TWICE A Medical mcg/actuati DAY Branch on inhaler atorvastati Yes [id number] 80mg Take 1 Univers n 80 mg 8-12 tablet by ity of tablet 00:00: mouth at [place] 00 bedtime. Medical Branch losartan-hy Yes [id number] 1{tbl} Take 1 Univers drochloroth 8-12 tablet by ity of iazide 00:00: mouth [place] 100-25 mg 00 daily. Medical per tablet Branch albuterol-i Yes [id number] 2{puff} Inhale 2 Univers pratropium 8-12 Puffs 4 ity of (COMBIVENT 00:00: (four) [place] RESPIMAT) 00 times Medical 20-100 daily. Branch mcg/actuati on inhaler budesonide- Yes [id number] INHALE 2 Univers formoteroL 8-12 PUFFS BY ity o f (SYMBICORT) 00:00: MOUTH [place] 80-4.5 00 TWICE A Medical mcg/actuati DAY Branch on inhaler atorvastati Yes [id number] 80mg Take 1 Univers n 80 mg 8-12 tablet by ity of tablet 00:00: mouth at [place] 00 bedtime. Medical Branch losartan-hy Yes [id number] 1{tbl} Take 1 Univers drochloroth 8-12 tablet by ity of iazide 00:00: mouth [place] 100-25 mg 00 daily. Medical per tablet Branch ibuprofen 2021- No [id number] TAKE 1 Univers 800 mg 8-12 01-25 TABLET BY ity of tablet 00:00: 00:00 MOUTH [place] 00 :00 EVERY 8 Medical (EIGHT) Branch HOURS NEEDED FOR PAIN (SCALE 4-6). Take with food. Use sparingly. Compression Yes Use as Univ ers Socks, 5-06 directed ity of X-Large 00:00: [place] [id number] Medical Branch Compression Yes Use as Univ ers Socks, 5-06 directed ity of X-Large 00:00: [place] [address] Medical Branch Compression Yes Use as Univ ers Socks, 5-06 directed ity of X-Large 00:00: [facility] 00 Medical Branch ciclopirox Yes Onychomycos Apply to [facility] 8 5-04 is of area(s) at it y of % solution 00:00: toenail bedtime. [place] 00 Apply to Medical fungal Branch toenails once daily; Every 7 days file toenails with nail filer and apply rubbing alcohol. ciclopirox Yes [id number] Apply to Univers ([facility]) 8 5-04 area(s) at ity of % solution 00:00: bedtime. [place] 00 Apply to Medical fungal Branch toenails once daily; Every 7 days file toenails with nail filer and apply rubbing alcohol. ciclopirox Yes [id number] Apply to Univers ([facility]) 8 5-04 area(s) at ity of % solution 00:00: bedtime. [place] 00 Apply to Medical fungal Branch toenails once daily; Every 7 days file toenails with nail filer and apply rubbing alcohol. varenicline Yes Nicotine TAKE 1 Univers (CHANTIX) 1 4-06 dependence, TABLET BY ity of mg tablet 00:00: unspecified MOUTH [place] 00 , TWICE A Medical uncomplicat DAY Branch ed losartan-hy Yes Essential 1{tbl} Take 1 Univers drochloroth 2-22 hypertensio tablet by ity of iazide 00:00: n mouth [place] 100-25 mg 00 daily. Medical per tablet STOP Branch LISINOPRIL -HCTZ. BRILINTA 90 Yes TAKE 1 Univ ers mg tablet 1-19 TABLET BY ity o f 00:00: MOUTH [place] 00 TWICE A Medical DAY Branch proMETHazin 2019-07 Yes Nausea 25mg Take 1 Un qian e 25 mg 2-09 tablet by ity of tablet 00:00: mouth [place] 00 every 8 Medical (eight) Branch hours as needed (nausea). proMETHazin 2019-07 Yes [id number] 25mg Take 1 Univers e 25 mg 2-09 tablet by ity of tablet 00:00: mouth [place] 00 every 8 Medical (eight) Branch hours as needed (nausea). proMETHazin 2019-07 Yes [id number] 25mg Take 1 Univers e 25 mg 2-09 tablet by ity of tablet 00:00: mouth [place] 00 every 8 Medical (eight) Branch hours as needed (nausea). multivit-mi 2019-07 Yes Take by Un qian n/FA/lycope 1-19 mouth. ity of n/lutein 20:09: [place] (CENTRUM 29 Medical SILVER MEN Branch ORAL) cyanocobala 2019-07 Yes Take by Un qian min, 1-19 mouth. ity of vitamin 20:05: [place] B-12, 08 Medical (VITAMIN Branch B12 ORAL) varenicline 2019-07 Yes Tobacco Take one Univers (CHANTIX 1-19 dependency 0.5mg tab ity of STARTING 00:00: by mouth [place] MONTH BOX) 00 once daily Med ical 0.5 mg for 3 Branch (11)- 1 mg days, then (42) tablet one 0.5mg tab twice daily for 4 days, then one 1mg tab twice daily. albuterol 2019-07 Yes Chronic 2{puff} Inhale 2 Univers (PROAIR 1-19 obstructive Puffs ity of HFA) 90 00:00: pulmonary every 6 [place] mcg/actuati 00 disease, (six) Med ical on inhaler unspecified hours as Branch COPD type needed for Wheezing or Shortness of Breath. albuterol 2019-07 Yes Chronic 2.5mg Inhale 3 Univers 2.5 mg /3 1-19 obstructive mL every 4 ity of mL (0.083 00:00: pulmonary (four) [place] %) 00 disease, hours as Medical nebulizer unspecified needed for Branch solution COPD type Wheezing or Shortness of Breath. albuterol-i 2019-07 Yes Chronic 1{puff} Inhale 1 Univers pratropium 1-19 obstructive Puff 4 ity of (COMBIVENT 00:00: pulmonary (four) [place] RESPIMAT) 00 disease, times Medic al 20-100 unspecified daily. Bran ch mcg/actuati COPD type on inhaler atorvastati 2019-07 Yes 80mg Take 1 Univ ers n 80 mg 1-19 tablet by ity of tablet 00:00: mouth at [place] 00 bedtime. Medical Branch aspirin 81 2019-07 Yes CHEW AND Uni vers mg chewable 1-19 SWALLOW 1 ity of tablet 00:00: TABLET BY [place] 00 MOUTH Medical EVERY DAY Branch budesonide- 2019-07 Yes Chronic INHALE 2 Univers formoteroL 1-19 obstructive PUFFS BY ity of (SYMBICORT) 00:00: pulmonary MOUTH [place] 80-4.5 00 disease, TWICE A Medica l mcg/actuati unspecified DAY B ranch on inhaler COPD type cyclobenzap 2019-07 Yes Chronic 10mg Take 1 U nivers rine 10 mg 1-19 musculoskel tablet by ity of tablet 00:00: etal pain mouth 3 [place] as 00 (three) Medical times Branch daily as needed for Muscle Spasms. Diclofenac 2019-07 Yes Chronic Apply to Univers Sodium 1-19 musculoskel area(s) 2 i ty of (VOLTAREN) 00:00: etal pain (two) [place] 1 % gel 00 times Medical daily as Branch needed for Pain (scale 7-10). ibuprofen 2019-07 Yes Chronic TAKE 1 Uni vers 800 mg 1-19 musculoskel TABLET BY i ty of tablet 00:00: etal pain MOUTH [place] 00 EVERY 8 Medical (EIGHT) Branch HOURS NEEDED FOR PAIN (SCALE 4-6). Take with food. Use sparingly. ipratropium 2019-07 Yes Chronic .5mg Inhale 2.5 Univers 0.02 % 1-19 obstructive mL every 4 ity of nebulizer 00:00: pulmonary (four) [place] solution 00 disease, hours as Med ical unspecified needed for Br anch COPD type Wheezing or Shortness of Breath. nitroglycer 2019-[address] Univers in 0.4 mg 1-19 artery TABLET ity of sublingual 00:00: disease UNDER [place] tablet 00 involving TONGUE Medica l sycuan EVERY 5 Branch coronary MINUTES artery of NEEDED FOR sycuan CHEST PAIN heart without angina pectoris metoprolol 2019-07 Yes Coronary 12.5mg Take 0.5 Univers succinate 1-19 artery tablets by it y of XL 25 mg 24 00:00: disease mouth 2 [place] hr tablet 00 involving (two) Medi lynn sycuan times Branch coronary daily. artery of sycuan heart without angina pectoris cyclobenzap 2019-07 Yes [id number] 10mg Take 1 Univers rine 10 mg 1-19 tablet by ity of tablet 00:00: mouth 3 [place] 00 (three) Medical times Branch daily as needed for Muscle Spasms. Diclofenac 2019-07 Yes [id number] Apply to Univers Sodium 1-19 area(s) 2 ity of (VOLTAREN) 00:00: (two) [place] 1 % gel 00 times Medical daily as Branch needed for Pain (scale 7-10). cyclobenzap 2019-07 Yes [id number] 10mg Take 1 Univers rine 10 mg 1-19 tablet by ity of tablet 00:00: mouth 3 [place] 00 (three) Medical times Branch daily as needed for Muscle Spasms. Diclofenac 2019-07 Yes [id number] Apply to Univers Sodium 1-19 area(s) 2 ity of (VOLTAREN) 00:00: (two) [place] 1 % gel 00 times Medical daily as Branch needed for Pain (scale 7-10). artificial 2018-07 Yes 2[drp] Administer MD tears, 0-01 2 drops to Anderso carboxymeth 13:44: the right n ylcellulose 02 eye as , (REFRESH needed for PLUS) 0.5% dry eyes. ophthalmic solution fluticasone 2018-07 Yes 1{dose} Inhale 1 MD -salmeterol 0-01 Dose by Ortega so (ADVAIR) 08:33: mouth n 250 mcg-50 24 daily. mcg/inhalat ion diskus inhaler ipratropium 2018-07 Yes Inhale by M D -albuterol 0-01 mouth Anderso (COMBIVENT) 08:33: every 6 n 18-103 24 (six) mcg/actuati hours as on inhaler needed. LISINOPRIL 2018-07 Yes 12.5mg Take 12.5 MD ORAL 0-01 mg by Anderso 08:33: mouth. n 24 Lisinopril HCTZ 25mg/12.5 erythromyci 2018-07 Yes .5[in_u Administer MD n (ROMYCIN) 0-01 s] 0.5 inches An derso ophthalmic 08:33: to the n ointment 24 right eye at bedtime. ticagrelor Yes TAKE 1 MD (BRILINTA) 9-24 TABLET BY Raymundo rso 90 mg tab 00:00: MOUTH n tablet 00 TWICE A DAY atorvastati Yes TAKE 1 MD n (LIPITOR) 8-26 TABLET BY And erso 80 mg 00:00: MOUTH AT n tablet 00 BEDTIME aspirin 81 Yes CHEW AND MD mg chewable 2-26 SWALLOW 1 And erso tablet 00:00: TABLET BY n 00 MOUTH EVERY DAY cyclobenzap Yes 10mg Take 10 mg MD rine 1-15 by mouth. Anderso (FLEXERIL) 09:46: n 10 mg 57 tablet HYDROcodone 2017-07 Yes 1{tbl} Take 1 MD -acetaminop 2-21 tablet by And erso hen (NORCO) 00:00: mouth as n 10 mg-325 00 needed. mg per tablet vitamin 2017- Yes 1000ug Take 1 Univer s B-12 1,000 2-20 tablet by ity of mcg tablet 00:00: mouth [place] 00 daily. Medical Branch cyanocobala 2017-07 Yes 1000ug Take 1,000 MD min, 2-20 mcg by Anderso vitamin 00:00: mouth n B-12, 1,000 00 daily. mcg/mL kit vitamin 2017- Yes 1000ug Take 1 Univer s B-12 1,000 2-20 tablet by ity of mcg tablet 00:00: mouth [place] 00 daily. Medical Branch vitamin 2017-07 Yes 1000ug Take 1 Univer s B-12 1,000 2-20 tablet by ity of mcg tablet 00:00: mouth [place] 00 daily. Medical Branch albuterol 2017-07 Yes 2.5mg Take 2.5 MD sulfate 2-13 mg by Anderso (PROVENTIL, 00:00: nebulizati n VENTOLIN) 00 on as 2.5 mg/0.5 needed. mL nebulizer solution lisinopril- 2017-07 Yes 1{tbl} Take 1 MD hydroCHLORO 2-13 tablet by And erso thiazide 00:00: mouth n (PRINZIDE,Z 00 daily. ESTORETIC) 20-25 mg per tablet budesonide- Yes Inhale by M D formoterol 4-12 mouth Anderso (SYMBICORT) 00:00: twice n 80-4.5 00 daily. mcg/actuati on inhaler methocarbam Yes 750mg Take 750 M D ol 3-29 mg by Anderso (ROBAXIN) 00:00: mouth as n 750 mg 00 needed. tablet nitroglycer Yes .4mg 0.4 mg. MD in 3-20 Anderso (NITROSTAT) 00:00: n 0.4 mg SL 00 tablet metoprolol Yes 12.5mg Take 12.5 MD succinate 3-20 mg by Anderso (TOPROL XL) 00:00: mouth n 25 mg 24 hr 00 daily. tablet inhalationa Yes Chronic Use as U nivers l spacing 3-14 bilateral directed i ty of device 00:00: low back [place] (BREATHERIT 00 pain Medical E MDI without Branch SPACER) sciatica gabapentin Yes 300mg Take 300 MD (NEURONTIN) 3-14 mg by Anderso 300 mg 00:00: mouth n capsule 00 twice daily. inhalationa Yes [id number] Use as Univers l spacing 3-14 directed ity of device 00:00: [place] (BREATHERIT 00 Medical E MDI Branch SPACER) inhalationa Yes [id number] Use as Univers l spacing 3-14 directed ity of device 00:00: [place] (BREATHERIT 00 Medical E MDI Branch SPACER) Nebulizer Yes COPD Use as [facility] s Accessories 1-27 exacerbatio directed ity of Kit 00:00: n [place] 00 Medical Branch Miscellaneo Yes Essential Use as [facility] Medical 08-10 hypertensio directed ity of Supply 00:00: n [place] (BLOOD 00 Medical PRESSURE Branch CUFF) [facility] Nebulizer Yes [id number] Use as U nivers Accessories 08-10 directed ity of Kit 00:00: [place] [facility] Miscellaneo Yes [id number] Use as [facility] Medical 08-10 directed ity o f Supply 00:00: [place] (BLOOD 00 Medical PRESSURE Branch CUFF) [facility] Nebulizer Yes [id number] Use as U nivers Accessories 08-10 directed ity of Kit 00:00: [place] [facility] Miscellaneo Yes [id number] Use as [facility] Medical 08-10 directed ity o f Supply 00:00: [place] (BLOOD 00 Medical PRESSURE Branch CUFF) [facility] naproxen 2016-07 Yes TAKE 1 MD (NAPROSYN) 1- TABLET BY Raymundo rso 500 mg 00:00: MOUTH n tablet 00 TWICE A DAY WITH MEALS promethazin 2016-07 Yes 25mg Take 25 mg MD e 0-11 by mouth. Anderso (PHENERGAN) 00:00: n 25 mg 00 tablet terbinafine Yes Apply MD HCl 9-28 topically Anderso (LamISIL) 1 00:00: to n % cream 00 affected area(s) as needed. ibuprofen Yes 800mg Take 800 MD (ADVIL,MOTR 9-15 mg by Anderso [place]) 800 mg 00:00: mouth. n tablet 00 HYDROcodone 2015-07 Yes Disruption 1{tbl} Take 1 MD -acetaminop 08-05 of wound, tablet by Jf townsend (NORCO) 00:00: unspecified mouth n 5 mg-325 mg 00 , initial every 6 per tablet encounter (six) hours as needed for severe pain. bacitracin 2015-07 Yes Disruption Administer MD ophthalmic - of wound, to the An derso ointment 00:00: unspecified right eye n 00 , sequela twice daily. bacitracin 2015-07 Yes Disruption Administer MD ophthalmic - of wound, to the An derso ointment 00:00: unspecified right eye n 00 , sequela twice daily. nicotine 2015-07 Yes Nicotine Apply 1 MD (NICODERM 0-24 dependence patch to Anderso CQ) 14 00:00: skin and n mg/24 hr 00 change transdermal patch patch daily as directed for tobacco cessation (alternate sites). nicotine Yes Tobacco Apply 1 MD (NICODERM 9-30 dependence patch to Anderso CQ) 21 00:00: syndrome skin and n mg/24 hr 00 change transdermal patch patch daily as directed for tobacco cessation (alternate sites). nicotine Yes Tobacco use [place] 1 MD polacrilex 9-02 lozenge in And erso (COMMIT) 4 00:00: mouth n MG lozenge 00 every 2 hours as directed for tobacco cessation. May increase to 1 lozenge every hour if needed. Avoid liquids before, during, and after use. buPROPion Yes Nicotine 150mg Take 1 M D (WELLBUTRIN 7-22 dependence tablet Anderso XL) 150 mg 00:00: (150 mg n 24 hr 00 total) by tablet mouth every morning for smoking cessation. varenicline Yes Nicotine 1mg Take 1 MD (CHANTIX) 1 7-06 dependence tablet (1 Anderso mg tablet 00:00: mg total) n 00 by mouth twice daily after food for tobacco cessation Immunizations Ordered Filled Immunization Date Status Comments [facility] e Immunization Name Name Influenza Virus 2020-06-02 Completed Universit y of Vaccine Quad .5 mL 00:00:00 [facility] 6+ MO Branch Influenza Virus 2020-06-02 Completed Universit y of Vaccine Quad .5 mL 00:00:00 [facility] 6+ MO Branch Influenza Virus 2020-06-02 Completed Universit y of Vaccine Quad .5 mL 00:00:00 [place] [facility] 6+ MO Branch Influenza Virus 2019-05-28 Completed Universit y of Vaccine Quad .5 mL 00:00:00 [place] [facility] IM 6+ MO Branch Influenza Virus 2019-05-28 Completed Universit y of Vaccine Quad .5 mL 00:00:00 [place] [facility] IM 6+ MO Branch Influenza Virus 2019-05-28 Completed Universit y of Vaccine Quad .5 mL 00:00:00 [facility] IM 6+ MO Branch Influenza Virus 2018-06-26 Completed Universit y of Vaccine Quad .5 mL 00:00:00 [facility] 6+ MO Branch TDAP 2018-06-26 Completed University of 00:00:00 [facility] Influenza Virus 2018-06-26 Completed Universit y of Vaccine Quad .5 mL 00:00:00 [facility] IM 6+ MO Branch TDAP 2018-06-26 Completed University of 00:00:00 [facility] Influenza Virus 2018-06-26 Completed Universit y of Vaccine Quad .5 mL 00:00:00 [facility] IM 6+ MO Branch TDAP 2018-06-26 Completed University of 00:00:00 [facility] Pneumococcal 2014-05-11 Completed University o f Polysaccharide, 00:00:00 [place] [facility] ical PPSV23 (PNEUMOVAX) Branch Influenza Virus 2014-05-11 Completed Universit y of Vaccine Quad IM 3+ 00:00:00 [facility] Pneumococcal 2014-05-11 Completed University o f Polysaccharide, 00:00:00 [place] [facility] ical PPSV23 (PNEUMOVAX) Branch Influenza Virus 2014-05-11 Completed Universit y of Vaccine Quad IM 3+ 00:00:00 [facility] Pneumococcal 2014-05-11 Completed University o f Polysaccharide, 00:00:00 [facility] ical PPSV23 (PNEUMOVAX) Branch Influenza Virus 2014-05-11 Completed Universit y of Vaccine Quad IM 3+ 00:00:00 [facility] Procedures This patient has no known procedures. Plan of Care Planned Activity Planned Date Details Comments Source Future Scheduled 2028-06-26 DTaP,Tdap,and Td Univers ity of Test 00:00:00 Vaccines (2 - Td) [facility] [code = Branch DTaP,Tdap,and Td Vaccines (2 - Td)] Future Scheduled 2024-01-07 PNEUMOCOCCAL 0-64 Postponed from Univ ersity of Test 00:00:00 YEARS COMBINED 05/11/2015 [place] [facility] SERIES (2 of 3 - (Alternative Branch PCV13) [code = Guidelines) PNEUMOCOCCAL 0-64 YEARS COMBINED SERIES (2 of 3 - PCV13)] Future Scheduled 2021-06-02 Depression screening Uni versity of Test 00:00:00 (procedure) [code = [place] Me dical [id number]] Branch Future Scheduled 2019-10-24 Screening for University of Test 00:00:00 malignant neoplasm [place] Med ical of colon (procedure) Branch [code = 800401342] Future Scheduled 2019-10-24 Screening for University of Test 00:00:00 malignant neoplasm [place] Med ical of colon (procedure) Branch [code = 188403151] Future Scheduled 2016-03-29 Screening for University of Test 00:00:00 malignant neoplasm [facility] ica of lung (procedure) Branch [code = 763497493] Future Scheduled 2009 Screening for occult Uni versity of Test 00:00:00 blood in feces [facility] (procedure) [code = Branch [id number]] Future Scheduled 2009 Stool DNA-based Universi ty of Test 00:00:00 colorectal cancer [facility] screening Branch (procedure) [code = 958210500029033] Future Scheduled 2009 Flexible fiberoptic Univ ersity of Test 00:00:00 sigmoidoscopy [facility] (procedure) [code = Branch [id number]] Future Scheduled 2009 Zoster Recombinant Unive rsity of Test 00:00:00 Vaccine (SHINGRIX) [facility] [place] (1 of 2) [code = Branch Zoster Recombinant Vaccine (SHINGRIX) (1 of 2)] Future Scheduled 1975 SARS-CoV-2 University of Test 00:00:00 (COVID-19) Vaccine [facility] [place] (1) [code = Branch SARS-CoV-2 (COVID-19) Vaccine (1)] Future Scheduled 1964-01-07 COVID-19 Vaccination MD Miranda Test 00:00:00 (1) [code = COVID-19 Vaccination (1)] Encounters Start End Encounter Admission Attending Care Care Encounter Source Date/Time Date/Time Type Type Clinicians Facility Department ID 2021-10-17 2021-10-17 Outpatient Diane [facility] [id number] Univers 10:00:00 10:00:00 PRANAY [facility] 2021-08-15 2021-08-15 Outpatient Diane [facility] [id number] Univers 11:00:00 11:00:00 MARIA ELENA [facility] 2021-08-10 2021-08-10 Lani Villa [facility] [id number] Univers 00:00:00 00:00:00 [id number] Lauri as BECKI?BLEA [id number] [place] yan [address] MEDICAL OFFICE [facility] 2021-08-08 2021-08-08 Patient Ham [facility] [id number] Univers 00:00:00 00:00:00 Outreach [facility] [id number] i Naomy [id number] Lauri as BECKI?JUDSON [id number] [address] 2020-04-19 2020-04-19 Outpatient MARY KNAPP MDA MDA [id number] 00:00:00 00:00:00 CHASE mcguire 2020-04-19 2020-04-19 Outpatient MARY KNAPP MDA MDA [id number] 00:00:00 00:00:00 CHASE mcguire Results This patient has no known results.
[2021-08-15 17:27] LABS: Absolute Lymphocytes (CBC) 2.4 K/uL (0.7-4.9); Hematocrit 49.2 % (39.6-49.0); Lymphocytes % 21.7 % (15.3-44.8); MPV 8.1 fL (7.6-11.3)
[2021-08-15 17:28] LABS: Protime INR 0.92
[2021-08-15 17:44] LABS: SARS-COV-2 RT PCR NEGATIVE (NEGATIVE)
[2021-08-15] MEDS ORDERED: FUROSEMIDE 40 MG/4 ML VIAL ONE (17:54)
--- NOTE | 2021-08-15 18:39 | RAD REPORT ---
EXAM DESCRIPTION: RAD - Chest Single View - 08/15/2021 6:04 pm CLINICAL HISTORY: SOB Chest pain. COMPARISON: Chest Single View dated 10/06/2017 FINDINGS: Portable technique limits examination quality. Moderate to significant bilateral pulmonary opacities are present which probably represent pneumonia or pulmonary edema. The heart is mildly enlarged in size. No displaced fractures.
[2021-08-15 19:39] LABS: Urine Blood Trace-intact (Negative); Urine Glucose Negative (Negative); Urine Protein Negative (Negative); Urine Specific Gravity >=1.030 (1.005-1.030); Urine pH 5.5 (5.0-7.0)
--- NOTE | 2021-08-15 19:42 | ER ---
Nurse's Notes [facility] Name: Andrez Orantes Age: 61 yrs Sex: Male : 1960 Arrival Date: 08/15/2021 Time: 16:32 Bed 14 Private MD: Diagnosis: COPD/ Chronic obstructive pulmonary disease with (acute) exacerbation;Hypoxemia;Unspecified combined systolic (congestive) and diastolic (congestive) heart failure Presentation: 08/15 16:32 Chief complaint: EMS states: shortness of breath that began 2 days ago. O2 on arrival ss was 80 % on 4L NC (home O2). HX of COPD. EMS administered neb tx 3:1 albuterol and Atrovent, Solu Medrol 125 mg and Magnesium 2 g. Coronavirus screen: Client presents with at least one sign or symptom that may indicate coronavirus-19. Ebola Screen: Patient denies exposure to infectious person. Patient denies travel to an Ebola-affected area in the 21 days before illness onset. Initial Sepsis Screen: Does the patient meet any 2 criteria? No. Patient's initial sepsis screen is negative. Does the patient have a suspected source of infection? No. Patient's initial sepsis screen is negative. Risk Assessment: Do you want to hurt yourself or someone else? Patient reports no desire to harm self or others. Onset of symptoms was August 13, 2021. 16:32 Method Of Arrival: EMS: [facility] 16:32 Acuity: SALINA 2 ss Triage Assessment: 16:55 Respiratory: Reports shortness of breath cough that is labored breathing the patient cb5 has moderate shortness of breath. Historical: - Allergies: 16:36 PENICILLINS; ss - PMHx: 16:36 Asthma; basal cell carcinoma; COPD; Hypertension; interstitial lung disease; Myocardial ss infarction; - Immunization history:: Adult Immunizations up to date, denies getting vaccine. - Social history:: Smoking status: . Screenin:45 Abuse screen: Denies threats or abuse. Denies injuries from another. Nutritional cb5 screening: No deficits noted. Tuberculosis screening: No symptoms or risk factors identified. Fall Risk None identified. Assessment: 16:45 General: Appears uncomfortable, obese, unkempt, Behavior is cooperative, anxious, cb5 restless. Pain: Denies pain. Neuro: No deficits noted. Level of Consciousness is awake, alert, obeys commands, Oriented to person, place, time, situation, Appropriate for age. Cardiovascular: Rhythm is regular. Respiratory: Airway is patent Trachea midline Respiratory effort is labored, Breath sounds are diminished in right posterior lower lobe Breath sounds with wheezes. GI: No deficits noted. : No deficits noted. EENT: No deficits noted. Derm: No deficits noted. Musculoskeletal: Reports. 19:02 General: Appears in no apparent distress. comfortable, obese, unkempt, Behavior is tk1 calm, cooperative, appropriate for age. Pain: Complains of pain in back Pain does not radiate. Pain currently is 6 out of 10 on a pain scale. Quality of pain is described as aching, Pain began years ago. Is intermittent, Alleviated by medications, Aggravated by increased activity. Neuro: No deficits noted. Level of Consciousness is awake, alert, obeys commands, Oriented to person, place, time, situation, Appropriate for age Landing Gear Mechanic are equal bilaterally Moves all extremities. Full function Gait is unsteady, Speech is normal, Facial symmetry appears normal, Reports. Cardiovascular: No deficits noted. Heart tones S1 S2 Capillary refill < 3 seconds is brisk Clubbing of nail beds is absent JVD is absent Patient's skin is warm and dry. Rhythm is sinus rhythm. Respiratory: Airway is patent Trachea midline Respiratory effort is even, unlabored, Respiratory pattern is regular, symmetrical, Breath sounds are diminished bilaterally. Breath sounds with wheezes bilaterally. GI: No deficits noted. : No deficits noted. EENT: No deficits noted. Derm: No deficits noted. Musculoskeletal:. Vital Signs: 16:30 BP 158 / 81; Pulse 86; Resp 22; Pulse Ox 97% ; cb5 16:32 BP 151 / 78; Pulse 87; Pulse Ox 96% on Nebulizer Mask; ss 16:45 BP 131 / 60; Pulse 84; Resp 22; Pulse Ox 98% ; cb5 18:08 BP 127 / 72; Pulse 76; Resp 20; Pulse Ox 93% ; Pain 2/10; cb5 19:02 BP 122 / 86 LA Supine (auto/reg); Pulse 77 MON; Resp 21 S; Pulse Ox 95% on 3 lpm NC; tk1 Pain 5/10; 19:58 BP 136 / 74 LA Supine (auto/reg); Pulse 70 MON; Resp 21 S; Pulse Ox 92% on 3 lpm NC; tk1 21:00 BP 157 / 88 LA Sitting (auto/reg); Pulse 81 MON; Resp 24 S; Temp 98.2(O); Pulse Ox 99% tk1 on 10% Nebulizer Mask; ED Course: 16:32 Patient arrived in ED. ss 16:32 Percy Arteaga PA is PHCP. cp 16:32 Celio Mueller MD is Attending Physician. cp 16:36 Triage completed. ss 16:36 Arm band placed on right wrist. ss 16:45 Allergy band placed. Call light in reach. Side rails up X 1. cb5 16:45 No provider procedures requiring assistance completed. cb5 16:46 Eliza Lopez, RN is Primary Nurse. cb5 17:33 Procalcitonin Sent. cb5 17:33 Blood Culture Adult (2) Sent. cb5 17:33 Lactate Sent. cb5 17:33 Basic Metabolic Panel Sent. cb5 17:34 CBC with Diff Sent. cb5 17:34 LFT's Sent. cb5 17:34 Magnesium Sent. cb5 17:34 NT PRO-BNP Sent. cb5 17:34 PT-INR Sent. cb5 17:34 Troponin HS Sent. cb5 18:10 XRAY Chest (1 view) In Process Unspecified. EDMS 18:42 Report given to Daniella Callejas cb5 19:12 Lucien Mueller MD is Hospitalizing Provider. cp 19:15 threat monitoring analyst on. Pulse ox on. NIBP on. tk1 19:15 IV is patent, is intact. tk1 19:44 Urine Microscopic Only Sent. tk1 Administered Medications: 17:52 Drug: Lasix (furosemide) 40 mg Route: IVP; Site: left antecubital; cb5 19:58 Drug: LevaQUIN (levofloxacin) 500 mg Volume: 100 ml; Route: IVPB; Infused Over: 60 tk1 mins; Site: left antecubital; 21:13 Follow up: Response: No adverse reaction; IV Status: Completed infusion; IV Intake: tk1 100ml 20:32 Drug: Albuterol - atroVENT (ipratropium) (3:1) (2.5 mg - 0.5 mg) 3 ml Route: Nebulizer; tk1 21:12 Follow up: Response: Wheezing diminished tk1 20:32 Drug: SOLU-Medrol (methylPrednisoLONE) 125 mg Route: IVP; Infused Over: 2 mins; Site: tk1 left antecubital; 21:12 Follow up: Response: No adverse reaction tk1 Intake: 19:42 PO: 240ml (Water); Total: 240ml. tk1 19:44 IV: 100ml (IV Fluid); Total: 340ml. tk1 21:13 IV: 100ml; Total: 440ml. tk1 Output: 19:02 Urine: 150ml (Voided); Total: 150ml. tk1 19:42 Urine: 100ml (Voided); Total: 250ml. tk1 Outcome: 19:13 Decision to Hospitalize by Provider. cp 20:39 Admitted to Med/surg accompanied by nurse, via stretcher, room 211, with oxygen, with tk1 chart, Report called to JORGE Valles will call back in 5 minutes. 20:39 Condition: improved 21:09 Admitted to Med/surg accompanied by nurse, via stretcher, room 211, with oxygen, with tk1 chart, Report called to JORGE Valles 21:34 Patient left the ED. tk1 Signatures: Dispatcher [employer] EDMS Daisha Cook RN RN Percy Angel PA PA cp Kirby, Tammie tk1 Eliza Lopez, RN RN cb5 Corrections: (The following items were deleted from the chart) 18:09 17:33 COVID-19/FLU A+B+MOL.LAB.BRZ drawn and sent. cb5 EDMS
--- NOTE | 2021-08-15 19:42 | EDPHYS ---
Physician Documentation [facility] Name: Andrez Oratnes Age: 61 yrs Sex: Male : 1960 Arrival Date: 08/15/2021 Time: 16:32 Bed 14 Private MD: ED Physician Celio Mueller HPI: 08/15 16:40 This 61 yrs old Male presents to ER via EMS with complaints of Shortness Of cp Breath. 16:40 The patient has shortness of breath at rest. Onset: The symptoms/episode began/occurred cp 2 day(s) ago. EMS reports patient's was 78% while on 4 liters NC. Given 125 mg solu-medrol, 3 to 1 breathing treatment, 2 grams of IV magnesium. 16:40 Duration: The symptoms are continuous, but are steadily getting better. cp 16:40 Associated signs and symptoms: Pertinent negatives: chest pain, diaphoresis, fever. cp Severity of symptoms: in the emergency department the symptoms have improved mildly. Historical: - Allergies: 16:36 PENICILLINS; ss - PMHx: 16:36 Asthma; basal cell carcinoma; COPD; Hypertension; interstitial lung disease; Myocardial ss infarction; - Immunization history:: Adult Immunizations up to date, denies getting vaccine. - Social history:: Smoking status: . ROS: 16:45 Eyes: Negative for injury, pain, redness, and discharge. cp 16:45 Constitutional: Negative for body aches, chills, fever, poor PO intake. 16:45 Cardiovascular: Positive for edema, Negative for chest pain, palpitations. 16:45 Respiratory: Positive for shortness of breath, at rest. wheezing. 16:45 Abdomen/GI: Negative for vomiting, diarrhea, constipation. 16:45 Back: Negative for radiated pain. cp 16:45 Neuro: Negative for altered mental status, headache, syncope, weakness. 16:45 All other systems are negative. Exam: 16:50 Constitutional: The patient appears alert, awake, non-diaphoretic, non-toxic, well cp developed, well nourished, obese. 16:50 Head/Face: Normocephalic, atraumatic. cp 16:50 Eyes: Periorbital structures: appear normal, Conjunctiva: normal, no exudate, no injection, Sclera: no appreciated abnormality, Lids and lashes: appear normal, bilaterally. 16:50 ENT: External ear(s): are unremarkable, Nose: is normal, Mouth: Lips: moist, Oral mucosa: moist, Posterior pharynx: Airway: no evidence of obstruction, patent. 16:50 Neck: ROM/movement: Meningeal signs: are not present, nuchal rigidity, is not appreciated. 16:50 Chest/axilla: Inspection: normal, Palpation: is normal, no crepitus, no tenderness. 16:50 Cardiovascular: Rate: normal, Rhythm: regular, Edema: ankle edema, that is mild, JVD: is not appreciated. 16:50 Respiratory: moderate respiratory distress is noted, Respirations: labored breathing, that is moderate, shallow respirations, that is moderate, Breath sounds: decreased breath sounds, that are mild, throughout, stridor, is not appreciated, wheezing: that is mild, is heard in the right middle lobe, left lower lobe and right lower lobe. 16:50 Abdomen/GI: Inspection: obese Palpation: abdomen is soft and non-tender, in all quadrants. 16:50 Neuro: Orientation: to person, place \T\ time. Mentation: is normal, Motor: moves all fours, strength is normal, Sensation: is normal. Vital Signs: 16:30 BP 158 / 81; Pulse 86; Resp 22; Pulse Ox 97% ; cb5 16:32 BP 151 / 78; Pulse 87; Pulse Ox 96% on Nebulizer Mask; ss 16:45 BP 131 / 60; Pulse 84; Resp 22; Pulse Ox 98% ; cb5 18:08 BP 127 / 72; Pulse 76; Resp 20; Pulse Ox 93% ; Pain 2/10; cb5 19:02 BP 122 / 86 LA Supine (auto/reg); Pulse 77 MON; Resp 21 S; Pulse Ox 95% on 3 lpm NC; tk1 Pain 5/10; 19:58 BP 136 / 74 LA Supine (auto/reg); Pulse 70 MON; Resp 21 S; Pulse Ox 92% on 3 lpm NC; tk1 21:00 BP 157 / 88 LA Sitting (auto/reg); Pulse 81 MON; Resp 24 S; Temp 98.2(O); Pulse Ox 99% tk1 on 10% Nebulizer Mask; MDM: 16:36 Patient medically screened. cp 17:10 Differential diagnosis: Bronchitis CHF exacerbation, Chronic Obstructive Pulmonary cp Disease pneumonia, Pneumothorax pulmonary edema, Pulmonary Embolism Sepsis Unstable Angina. 18:30 Physician consultation: Nathen Bone was contacted at 18:30, regarding admission, to the telemetry unit. patient's condition. 19:15 Data reviewed: vital signs, nurses notes, lab test result(s), EKG, radiologic studies, cp plain films. 19:15 Test interpretation: by ED physician or midlevel provider: ECG, plain radiologic cp studies. 08/15 16:35 Order name: Basic Metabolic Panel 08/15 16:35 Order name: CBC with Diff; Complete Time: 18:11 cp 08/15 19:11 Interpretation: Normal except: WBC 11.00; HCT 49.2; RDW 16.0; MN% 14.0; EOSINOPHIL % cp 4.9; MNA 1.5. 08/15 16:35 Order name: LFT's 08/15 16:35 Order name: Magnesium 08/15 16:35 Order name: NT PRO-BNP 08/15 16:35 Order name: PT-INR; Complete Time: 18:11 cp 08/15 16:35 Order name: Troponin HS 08/15 16:35 Order name: Lactate; Complete Time: 18:11 cp 08/15 16:35 Order name: Procalcitonin; Complete Time: 19:11 cp 08/15 16:35 Order name: Blood Culture Adult (2) 08/15 16:35 Order name: Urine Microscopic Only 08/15 17:05 Order name: COVID-19/FLU A+B; Complete Time: 18:11 EDMS 08/15 19:39 Order name: Urine Dipstick-Ancillary; Complete Time: 19:47 EDCT 08/15 16:35 Order name: XRAY Chest (1 view); Complete Time: 19:31 cp 08/15 16:35 Order name: EKG; Complete Time: 17:07 cp 08/15 16:35 Order name: Cardiac monitoring; Complete Time: 16:51 cp 08/15 16:35 Order name: EKG - Nurse/Tech; Complete Time: 16:51 cp 08/15 16:35 Order name: IV Saline Lock; Complete Time: 16:51 cp 08/15 16:35 Order name: Labs collected and sent; Complete Time: 17:33 cp 08/15 16:35 Order name: O2 Per Protocol; Complete Time: 16:51 cp 08/15 16:35 Order name: O2 Sat Monitoring; Complete Time: 16:51 cp 08/15 16:35 Order name: Urine Dipstick-Ancillary (obtain specimen); Complete Time: 19:44 cp 08/15 20:21 Order name: ABG la1 Administered Medications: 17:52 Drug: Lasix (furosemide) 40 mg Route: IVP; Site: left antecubital; cb5 19:58 Drug: LevaQUIN (levofloxacin) 500 mg Volume: 100 ml; Route: IVPB; Infused Over: 60 tk1 mins; Site: left antecubital; 21:13 Follow up: Response: No adverse reaction; IV Status: Completed infusion; IV Intake: tk1 100ml 20:32 Drug: Albuterol - atroVENT (ipratropium) (3:1) (2.5 mg - 0.5 mg) 3 ml Route: Nebulizer; tk1 21:12 Follow up: Response: Wheezing diminished tk1 20:32 Drug: SOLU-Medrol (methylPrednisoLONE) 125 mg Route: IVP; Infused Over: 2 mins; Site: tk1 left antecubital; 21:12 Follow up: Response: No adverse reaction tk1 Disposition Summary: 08/15/21 19:13 Hospitalization Ordered Hospitalization Status: Inpatient Admission cp Provider: Lucien Mueller cp [facility] cp Condition: Fair cp Problem: an acute exacerbation cp Symptoms: have improved cp Bed/Room Type: Standard Room Assignment: 211(08/15/21 20:29) mw Diagnosis - COPD/ Chronic obstructive pulmonary disease with (acute) exacerbation cp - Hypoxemia cp - Unspecified combined systolic (congestive) and diastolic (congestive) heart failure cp Forms: - Medication Reconciliation Form cp - SBAR form cp Addendum: 08/19/2021 07:12 Co-signature as Attending Physician, Celio Mueller MD I agree with the assessment and r n plan of care. Attestation: The patient's history, exam findings, diagnostics, and a summary of any interventions or procedures was reviewed in detail with Percy BAEZ. Signatures: Dispatcher MedHo Toyin Flores RN RN mw Nieto, Roman, MD MD rn Smirch, Shelby, RN RN ss Attema, Lee, FNP-C [employer] HAND-Cla1 Percy Arteaga, NESTOR PA cp Britta Lara tk1 Eliza Lopez, RN RN cb5 Corrections: (The following items were deleted from the chart) 08/15 18:09 17:07 COVID-19/FLU A+B+MOL.LAB.BRZ ordered. EDMS EDMS 18:57 16:50 Constitutional: Negative for body aches, chills, fever, poor PO intake, cp cp 18:57 16:50 Cardiovascular: Positive for edema, Negative for chest pain, palpitations, cp cp 18:57 16:50 Respiratory: Positive for shortness of breath, at rest. wheezing, cp cp 18:57 16:50 Abdomen/GI: Negative for vomiting, diarrhea, constipation, cp cp 18:57 16:50 Eyes: Negative for injury, pain, redness, and discharge, cp cp 20:29 19:13 cp mw
[2021-08-15] MEDS ORDERED: Levofloxacin500mg IV 500 MG/100 ML BAG IV ONE (19:48)
[2021-08-15 20:06] LABS: Albumin 3.1 g/dL (3.4-5.0); Bilirubin Direct 0.1 mg/dL (0-0.2); Bilirubin Total 0.4 mg/dL (0.2-1.0); Potassium 3.8 mmol/L (3.5-5.1); Protein, Total 8.3 g/dL (6.4-8.2)
[2021-08-15 20:08] LABS: Troponin High Sensitivity 130.5 pg/mL (<58.9)
[2021-08-15] MEDS ORDERED: ALBUTEROL 2.5 MG/3 ML NEB SOL ONE (20:25)
[2021-08-15] MEDS ORDERED: METHYLPREDNISOLONE 125 MG INJ ONE (20:25)
[2021-08-15] MEDS ORDERED: IPRATROPIUM BROM 0.5MG/2.5ML ONE (20:25)
[2021-08-15 20:48] LABS: Urine Amorphous Sediment 1+ /HPF (NONE SEEN); Urine Bacteria <20 /HPF (NONE SEEN); Urine Mucus 1+ /HPF (NONE SEEN); Urine RBC <5 /HPF (NONE SEEN)
[2021-08-15 21:12] LABS: Blood O2 Saturation 97.9 % (92-98.5)
[2021-08-15 21:13] LABS: Arterial Blood Carboxyhemoglob 1.7 % (0-1.5); Blood Gas Oxyhemoglobin 95.3 % (94-97)
[2021-08-15] MEDS ORDERED: ONDANSETRON 4 MG/2 ML VIAL IV PRN (21:13)
[2021-08-15] MEDS ORDERED: ACETAMINOPHEN 500 MG TAB PO PRN (21:13)
[2021-08-15] MEDS ORDERED: IPRATROPIUM BROM 0.5MG/2.5ML NEB PRN (21:13)
[2021-08-15] MEDS ORDERED: BENZONATATE 100 MG CAP PO PRN (21:13)
--- NOTE | 2021-08-15 21:30 | P.HP ---
Certification for Inpatient Patient admitted to: Inpatient With expected LOS: >2 Midnights Patient will require the following post-hospital care: None Practitioner: I am a practitioner with admitting privileges, knowledge of patient current condition, hospital course, and medical plan of care. Services: Services provided to patient in accordance with Admission requirements found in Title 42 Section 412.3 of the Code of Federal Regulations Patient History Date of Service: 08/15/21 Reason for admission: COPD, pneumonia History of Present Illness: 61-year-old male with history of COPD on chronic home oxygen therapy, hypertension, CAD presents the emergency department for shortness of breath. Patient reports he was recently seen at [facility] and discharged approximately a week and a half ago for COPD exacerbation, reports he stayed in the hospital for 2 days at that time was discharged on home oxygen. Patient presented to the emergency department EMS reported the patient's room sats on his home O2 were in the 80s. Patient was evaluated in the emergency department labs were significant for white blood cell count 11 sodium 139 CO2 35 GFR 84 glucose 111 troponin high-sensitivity 130.5 Covid negative ABG demonstrated PCO2 58.7 PO2 115 on oxygen chest x-ray was significant for moderate to significant bilateral pulmonary opacities present which probably represents pneumonia or pulmonary edema. BNP within normal at this time patient without history of CHF suspect pneumonia at this time although with mildly elevated troponin did consider CHF. Will admit for COPD exacerbation with suspected bilateral pneumonia. Allergies Penicillins Allergy (Verified 10/06/17 01:39) Unknown Sulfa (Sulfonamide Antibiotics) Adverse Reaction (Verified 10/06/17 01:39) Itching/Hives/Rash sulfamethoxazole [From Bactrim] Adverse Reaction (Verified 10/06/17 01:39) Itching/Hives/Rash trimethoprim [From Bactrim] Adverse Reaction (Verified 10/06/17 01:39) Itching/Hives/Rash Home Medications: Albuterol Sulfate [Albuterol Sulfate 0.083% Neb Soln] 2.5 mg IH TID 10/06/17 Aspirin [Adult Low Dose Aspirin EC] 81 mg PO DAILY 10/06/17 Atorvastatin Calcium [Lipitor] 80 mg PO BEDTIME 10/06/17 Cyanocobalamin (Vitamin B-12) [Liquid B-12] 1,000 mcg PO DAILY 10/06/17 Cyclobenzaprine [Flexeril*] 10 mg PO BEDTIME 10/06/17 Gabapentin [Gralise] 300 mg PO BEDTIME 10/06/17 Hydrocodone 5/APAP 325 [Beaver 5/325*] 2 tab PO Q6H PRN 10/06/17 Lisinopril/Hydrochlorothiazide [Zestoretic 20-25 mg Tablet] 1 each PO DAILY 10/06/17 Metoprolol Tartrate [Lopressor*] 12.5 mg PO BID 10/06/17 Ticagrelor [Brilinta*] 90 mg PO BID 10/06/17 Varenicline Tartrate [Chantix] 1 mg PO BID 10/06/17 methocarbamoL [Robaxin*] 750 mg PO QID 10/06/17 Albuterol Neb [Proventil 0.083% Neb Soln] 2.5 mg NEB [id number] PRN amp 10/07/17 Arformoterol Tartrate [Brovana] 15 mcg NEB BIDRESP vial.neb 10/07/17 - Past Medical/Surgical History Diabetic: No -: COPD -: Obstructive sleep apnea non compliant with CPAP -: Interstitial lung disease -: HTN -: CAD with stent placement -: Hyperlipidemia -: Obesity -: 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 He has 1 child. - Social History Smoking Status: Current every day smoker Smoking therapy provided: Yes Alcohol use: No CD- Drugs: No Caffeine use: Yes Place of Residence: Home Review of Systems 10-point ROS is otherwise unremarkable Respiratory: Cough, Shortness of Breath, SOB with Excertion, Sputum, Wheezing Physical Examination - Physical Exam General: Alert, In no apparent distress, Oriented x3, Obese HEENT: Atraumatic, PERRLA, Mucous membr. moist/pink, EOMI, Sclerae nonicteric Neck: Supple, 2+ carotid pulse no bruit, No LAD, Without JVD or thyroid abnormality Respiratory: Diminished, Expiratory wheezes Cardiovascular: Regular rate/rhythm, Normal S1 S2, Edema (2+ nonpitting edema bilateral lower extremities) Capillary refill: <2 Seconds Gastrointestinal: Normal bowel sounds, No tenderness Musculoskeletal: No tenderness Integumentary: No rashes Neurological: Normal speech, Normal strength at 5/5 x4 extr, Normal tone, Normal affect Lymphatics: No axilla or inguinal lymphadenopathy - Studies Laboratory Data (last 24 hrs) 08/15/21 17:00: PT 10.6, INR 0.92 08/15/21 17:00: WBC 11.00 H, Hgb 16.1, Hct 49.2 H, Plt Count 242 08/15/21 17:00: Sodium 139, Potassium 3.8, BUN 18, Creatinine 0.91, Glucose 111 H, Total Bilirubin 0.4, AST 20, ALT 33, Alkaline Phosphatase 102 Assessment and Plan - Plan Assessment: Acute on chronic hypoxic respiratory failure secondary to COPD exacerbation complicated with suspected bilateral pneumoniaon home oxygen Hypertension History of CAD Plan: Acute on chronic hypoxic respiratory failure secondary to COPD exacerbation complicated with suspected bilateral pneumoniaon home oxygen: Blood cultures obtained in the emergency department, sputum culture ordered. Continue IV antibiotic Levaquin, scheduled nebulizer treatments, as needed nebs, IV steroids. Pulmonology consulted. Anticipate clinical improvement over the course the next 24 to 48 hours. Hypertension: Obtain and continue medications History of CAD: Obtain and continue medications, monitor on telemetry. DVT PPX: Lovenox Code status: Full Discharge Plan: Home Plan to discharge in: 48 Hours - Advance Directives Does patient have a Living Will: No Does patient have a Durable POA for Healthcare: No - Code Status/Comfort Care Code Status Assessed: Yes (Full code) Critical Care: No Time Spent Managing Pts Care (In Minutes): 55
[2021-08-15 23:58] VITALS: BMI 52.1
[2021-08-16] MEDS ORDERED: IBUPROFEN 400 MG TAB PO ONE (00:24)
[2021-08-16 00:33] LABS: Magnesium 2.2 mg/dL (1.8-2.4)
[2021-08-16] MEDS: METHYLPREDNISOLONE 40 MG INJ IV SCH ×3 (03:19→16:29)
[2021-08-16] MEDS ORDERED: ALBUTEROL INHALER 60 PUFF/8 GM IH PRN (05:28)
--- NOTE | 2021-08-16 06:28 | P.PN ---
Date of Service: 08/16/21 Subjective: Patient reports some improvement of his respirations, less labored, oxygen titrated down to 3.5 L nasal cannula Reports some small years of redness and questionable pus from a superficial lesion on his right hand, states it is first noticed yesterday in the hospital Otherwise no new complaints ROS: 10 point ROS as noted above, otherwise negative Physical exam GEN: Alert, oriented, NAD, morbidly obese HEENT: Normal conjunctiva, sclera anicteric CV: Regular rate and rhythm, trace1+ edema bilateral lower extremities to knees Pulm: Nonlabored respirations on 3.5LNC, diffuse expiratory wheeze, slight crackles at bases bilaterally ABD: Soft, nontender, nondistended Neuro: Normal speech, normal affect Problem List Acute on chronic hypoxemic respiratory failure secondary to acute on chronic COPD exacerbation Possible superimposed bilateral pneumonia Hypertension History of CAD Osteoarthritis Elevated troponin Continue COPD treatment, nebulizers, steroids Pulmonology consulted Patient improving Patient has home oxygen set up on most recent hospital discharge Bilateral opacities noted on chest x-ray, possible pneumonia versus pulmonary edema. BNP not significantly elevated Patient with PTSD from prior imaging, unable to obtain CT Discussed with pulmonology, suspect this is more pulmonary edema Echocardiogram ordered Patient with mild troponin elevation, likely demand ischemia in setting of COPD exacerbation/hypoxemia. Cardiology consulted VTE: Lovenox Code: Full Dispo: Anticipate DC home tomorrow Time Spent Managing Pts Care (In Minutes): 35
[2021-08-16 07:42] LABS: Absolute Lymphocytes (CBC) 0.8 K/uL (0.7-4.9); Hematocrit 47.7 % (39.6-49.0); Lymphocytes % 7.2 % (15.3-44.8); MPV 8.2 fL (7.6-11.3); RBC Red Blood Cell Count 5.22 M/uL (4.33-5.43)
--- NOTE | 2021-08-16 07:49 | RAD REPORT ---
EXAM DESCRIPTION: US - Extrem Venous W Compress Juan - 08/16/2021 6:48 am CLINICAL HISTORY: R/O DVT COMPARISON: No comparisons TECHNIQUE: Real-time sonographic evaluation of the lower extremity deep venous systems was performed using color Doppler, grayscale, and compression. FINDINGS: Bilateral lower extremities. Normal compressibility, flow augmentation, phasic flow and spontaneous flow is identified in both the left and right lower extremity deep venous systems. No intraluminal filling defects seen. IMPRESSION: No DVT in either lower extremity.
[2021-08-16] MEDS: ARFORMOTEROL TARTRATE 15 MCG/2 ML VIAL.NEB NEB SCH ×2 (07:51→19:36)
[2021-08-16] MEDS ORDERED: INFLUENZA VACCINE (for 6+ mo) 0.5 ML DOSE IMVAC ONE (08:00)
[2021-08-16 08:32] LABS: Albumin 2.7 g/dL (3.4-5.0); Bilirubin Total 0.2 mg/dL (0.2-1.0); Potassium 3.5 mmol/L (3.5-5.1); Protein, Total 7.6 g/dL (6.4-8.2); Thyroid Stimulating Hormone 0.631 uIU/mL (0.360-3.740)
[2021-08-16 08:51] LABS: Troponin High Sensitivity 75.1 pg/mL (<58.9)
[2021-08-16] MEDS: NICOTINE 21 MG/PAT TD SCH (09:18)
[2021-08-16] MEDS: ENOXAPARIN 40 MG/0.4 ML SQ SCH (09:18)
[2021-08-16] MEDS: ASPIRIN EC 81 MG TAB PO SCH (09:18)
[2021-08-16 09:32] LABS: Blood Morphology Comment NOT SEEN (NOT SEEN); Platelet Estimate ADEQ; White Blood Cell Scan OK (OK)
--- NOTE | 2021-08-16 12:13 | P.CNS ---
Date of Consult: 08/16/21 Reason for Consult: COPD exacerbation Chief Complaint: COPD, pneumonia History of Present Illness: Patient is 61 years of age with a history of COPD sleep apnea metabolic syndrome on chronic oxygen therapy was just recently discharged from [facility] came back again complaining of worsening shortness of breath he does use Symbicort at home and oxygen compliant with his CPAP currently he was wheezing Allergies Penicillins Allergy (Verified 10/06/17 01:39) Unknown Sulfa (Sulfonamide Antibiotics) Adverse Reaction (Verified 10/06/17 01:39) Itching/Hives/Rash sulfamethoxazole [From Bactrim] Adverse Reaction (Verified 10/06/17 01:39) Itching/Hives/Rash trimethoprim [From Bactrim] Adverse Reaction (Verified 10/06/17 01:39) Itching/Hives/Rash Home Medications: Albuterol Sulfate [Albuterol Sulfate 0.083% Neb Soln] 2.5 mg IH TID 10/06/17 Aspirin [Adult Low Dose Aspirin EC] 81 mg PO DAILY 10/06/17 Atorvastatin Calcium [Lipitor] 80 mg PO BEDTIME 10/06/17 Albuterol Sulfate [Proair Hfa] 2 puff IH Q6H PRN 08/16/21 Budesonide/Formoterol Fumarate [Symbicort 80-4.5 Mcg Inhaler] 2 puff IH BID 08/16/21 Ibuprofen 800 mg PO TID 08/16/21 Losartan/Hydrochlorothiazide [Losartan-Hctz 100-25 mg Tab] 1 each PO DAILY 08/16/21 Metoprolol Succinate [Toprol Xl] 25 mg PO DAILY 08/16/21 Nitroglycerin [Nitrostat] 0.4 mg SL Q15M PRN 08/16/21 Potassium Chloride 20 meq PO DAILY 08/16/21 - Past Medical/Surgical History Diabetic: No -: COPD -: Obstructive sleep apnea non compliant with CPAP -: Interstitial lung disease -: HTN -: CAD with stent placement -: Hyperlipidemia -: Obesity -: 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 He has 1 child. - Social History Alcohol use: No CD- Drugs: No Caffeine use: Yes Place of Residence: Home Review of Systems 10-point ROS is otherwise unremarkable General: Weakness Respiratory: Cough, Shortness of Breath Physical Examination Temp Pulse Resp BP Pulse Ox 98.1 F 87 20 143/85 H 95 08/16/21 08:00 08/16/21 08:00 08/16/21 08:00 08/16/21 08:00 08/16/21 08:00 General: Alert, In no apparent distress, Oriented x3 Respiratory: Friction rub, Expiratory wheezes Cardiovascular: Regular rate/rhythm, Normal S1 S2 Gastrointestinal: Normal bowel sounds, Soft and benign Laboratory Data (last 24 hrs) 08/15/21 17:00: PT 10.6, INR 0.92 08/15/21 17:00: WBC 11.00 H, Hgb 16.1, Hct 49.2 H, Plt Count 242 08/15/21 17:00: Sodium 139, Potassium 3.8, BUN 18, Creatinine 0.91, Glucose 111 H, Magnesium 2.2, Total Bilirubin 0.4, AST 20, ALT 33, Alkaline Phosphatase 102 - Problems (1) COPD exacerbation Current Visit: Yes Status: Acute Plan: Patient is 61 years of age admitted with worsening dyspnea history of COPD on home oxygen obese sleep apnea history of coronary artery disease metabolic syndrome chest x-ray shows prominent interstitial changes significant elevation of troponin doubt sepsis DC levofloxacin 2D echo with Doppler have added some Lasix may have heart failure blood gases show hypoxemia with hypercarbia patient is an active smoker just quit smoking recently oxygenation so far satisfactory is 94% on 3 L
[2021-08-16] MEDS: MUPIROCIN 2% OINT 22GM TUBE TOP SCH ×2 (12:15→21:00)
--- NOTE | 2021-08-16 13:05 | EKG ---
Test Date: 2021-08-15 Test Time: 16:40:45 Animal Shelter Worker: MEASUREMENT RESULTS: Intervals: Rate: 83 MI: 182 QRSD: 82 QT: 352 QTc: 413 [place]: P: 47 MI: 182 QRS: 103 T: 47 INTERPRETIVE STATEMENTS: Normal sinus rhythm Rightward axis Anteroseptal infarct, age undetermined Abnormal ECG Compared to ECG 10/05/2017 23:46:47 Right-axis deviation now present Myocardial infarct finding still present Electronically Signed On 08-16-21 13:03:08 FINANCIAL COACH by Kendrick Pate
[2021-08-16] MEDS: FUROSEMIDE 40 MG TABLET PO SCH (13:26)
[2021-08-16] MEDS: IPRATROPIUM BROM 0.5MG/2.5ML NEB SCH ×2 (14:08→19:36)
[2021-08-16] MEDS: IBUPROFEN 600 MG TAB PO PRN (16:22)
[2021-08-16] MEDS: ALBUTEROL 2.5 MG/3 ML NEB SOL NEB PRN (19:36)
[2021-08-16] MEDS ORDERED: Levofloxacin500mg IV 500 MG/100 ML BAG IV SCH (20:00)
[2021-08-16 22:30] LABS: Magnesium 1.7
[2021-08-16] MEDS ORDERED: FAMOTIDINE 20 MG/2 ML VIAL IV PRN (22:44)
[2021-08-17] MEDS: METHYLPREDNISOLONE 40 MG INJ IV SCH (00:33)
[2021-08-17] MEDS: IPRATROPIUM BROM 0.5MG/2.5ML NEB SCH ×2 (01:19→08:10)
[2021-08-17] MEDS: ALBUTEROL 2.5 MG/3 ML NEB SOL NEB PRN ×2 (01:19→08:10)
[2021-08-17] MEDS: IBUPROFEN 600 MG TAB PO PRN (01:38)
[2021-08-17] MEDS ORDERED: CYCLOBENZAPRINE 10 MG TAB PO PRN (06:24)
[2021-08-17 07:29] LABS: Absolute Lymphocytes (CBC) 1.2 K/uL (0.7-4.9); Hematocrit 48.3 % (39.6-49.0); Lymphocytes % 6.9 % (15.3-44.8); MPV 8.5 fL (7.6-11.3); RBC Red Blood Cell Count 5.23 M/uL (4.33-5.43)
--- NOTE | 2021-08-17 07:39 | RAD REPORT ---
EXAM DESCRIPTION: Erich Single View08/17/2021 5:53 am CLINICAL HISTORY: Shortness of breath COMPARISON: August 15, 2021 FINDINGS: No significant change in moderate diffuse bilateral pulmonary opacities. Cardiomegaly persists IMPRESSION: No significant change in moderate diffuse bilateral pulmonary opacities which could repr esent pulmonary edema or pneumonia
[2021-08-17] MEDS: ARFORMOTEROL TARTRATE 15 MCG/2 ML VIAL.NEB NEB SCH (08:10)
[2021-08-17 08:11] LABS: Albumin 2.8 g/dL (3.4-5.0); Bilirubin Total 0.2 mg/dL (0.2-1.0); Protein, Total 7.6 g/dL (6.4-8.2)
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
[2021-08-17] MEDS: NICOTINE 21 MG/PAT TD SCH (08:29)
[2021-08-17] MEDS: ASPIRIN EC 81 MG TAB PO SCH (08:30)
[2021-08-17] MEDS: FUROSEMIDE 40 MG TABLET PO SCH (08:30)
[2021-08-17] MEDS: ENOXAPARIN 40 MG/0.4 ML SQ SCH (08:30)
--- NOTE | 2021-08-17 08:30 | ECHO ---
HEIGHT: 5 ft 10 in WEIGHT: 363 lb 3.2 oz DATE OF STUDY: 08/16/[address]: Jcarlos Mckenna MD 2-DIMENSIONAL: YES M.MODE: YES DOPPLER: YES COLOR FLOW: YES TDS: YES PORTABLE: NO DEFINITY: NO BUBBLE STUDY: NO DIAGNOSIS: TROPONIN ELEVATED CARDIAC HISTORY: CATHERIZATION: SURGERY: PROSTHETIC VALVE: PACEMAKER: MEASUREMENTS (cm) DIASTOLIC (NORMALS) SYSTOLIC (NORMALS) IVSd 1.0 (0.6-1.2) LA Diam 4.0 (1.9-4.0) LVEF 64% LVIDd 5.1 (3.5-5.7) LVIDs 3.3 (2.0-3.5) %FS 35% LVPWd 1.2 (0.6-1.2) Ao Diam 3.6 (2.0-3.7) 2 DIMENSIONAL ASSESSMENT: RIGHT ATRIUM: NORMAL LEFT ATRIUM: NORMAL RIGHT VENTRICLE: NORMAL LEFT VENTRICLE: NORMAL TRICUSPID VALVE: NORMAL MITRAL VALVE: NORMAL PULMONIC VALVE: NORMAL AORTIC VALVE: NORMAL PERICARDIAL EFFUSION: NONE AORTIC ROOT: NORMAL LEFT VENTRICULAR WALL MOTION: NORMAL. DOPPLER/COLOR FLOW: MILD TRICUSPID REGURGITATION. COMMENTS: NORMAL LEFT VENTRICULAR SIZE AND FUNCTION. MILD TRICUSPID REGURGITATION - NORMAL RIGHT VENTRICULAR SYSTOLIC PRESSURE. NO WALL MOTION ABNORMALITY. NO EFFUSION. TECHNOLOGIST: CEDRIC MENDIOLA
[2021-08-17] MEDS ORDERED: predniSONE 20 MG TAB PO SCH (09:00)
[2021-08-17] MEDS ORDERED: METOPROLOL XL 50 MG TAB PO SCH (09:00)
[2021-08-17] MEDS: MUPIROCIN 2% OINT 22GM TUBE TOP SCH (09:00)
[2021-08-17 09:06] VITALS: BP 158/76; TEMP 97.1
[2021-08-17 09:31] VITALS: O2SAT 96
[2021-08-17 16:24] LABS: Magnesium 1.8
[2021-08-17] MEDS ORDERED: ATORVASTATIN 80 MG TAB PO SCH (21:00)
--- NOTE | 2021-08-19 15:57 | CON ---
Date of Consultation: 08/16/2021 Reason For Consultation: Shortness of breath. History Of Present Illness: Mr. Orantes is a 61-year-old male. Has a history of COPD, asthma, hyper tension, interstitial lung disease, MO in the past. He came in with shortness of breath. O2 saturat ion was 78% on 4 L of nasal cannula. Denied any chest pain. Was given Solu-Medrol and breathing azalea atment and magnesium and has improved, was normal and back to normal by the time I saw him. I did no t really examine the patient. When I saw him it was convinced that his symptoms are related to COPD, an echocardiogram showed a perfectly normal echocardiogram without any wall motion abnormalities or effusion. Had a normal ejection fraction. The patient is on appropriate therapy for COPD exacerbati on. He is allergic to penicillin. His chest x-ray showed pneumonia versus pulmonary edema. EKG ajay wed normal sinus rhythm, possible old anteroseptal infarction with right axis deviation consistent wi th pulmonary disease. He had an extremity venous study that showed no DVT in either extremities. Hi s vital signs are stable he was afebrile. He had a slightly elevated white count. Otherwise, his bl ood work was fairly unremarkable except for an elevated troponin, which I believe is due to demand is chemia from hypoxia. The patient is now on multiple inhalers and aspirin. He is on Lasix. He is on metoprolol and steroid. His home medications include the above plus he takes Lipitor. He takes los kristine with hydrochlorothiazide and spironolactone. When he goes home, I prefer he continue his regim en rather than add Lasix to his regimen. Continue the metoprolol at the same dose and have him follo w up with his primary care physician and animal trapper in the near future. No further cardiac workup recommended from my end. PITA/ARNOLDOL Voice ID: [id number] Report ID: [id number]
== END 2021-08-17 10:16 | disposition home health service (06) | DRG 190 ==
LOC: ER 16:29 → ERHOLD 20:26 → 2ND 20:53
PROVIDERS: ADMIT Hospitalist; ATTEND Hospitalist
DX: J44.1 Chronic obstructive pulmonary disease with (acute) exacerbation (principal); J96.21 Acute and chronic respiratory failure with hypoxia; J96.22 Acute and chronic respiratory failure with hypercapnia; I24.8 Other forms of acute ischemic heart disease; Z68.43 Body mass index [BMI] 50.0-59.9, adult; I10 Essential (primary) hypertension; I25.10 Atherosclerotic heart disease of native coronary artery without angina pectoris; M19.90 Unspecified osteoarthritis, unspecified site; E66.01 Morbid (severe) obesity due to excess calories; E88.81 Metabolic syndrome and other insulin resistance; Z99.81 Dependence on supplemental oxygen; Z88.0 Allergy status to penicillin; Z88.2 Allergy status to sulfonamides; Z20.822 Contact with and (suspected) exposure to COVID-19
CPT/HCPCS: 0240U; 36415; 71045; 80048; 80053; 80061; 80076; 81003; 81015; 82805; 83605; 83735; 83880; 84145; 84439; 84443; 84484; 85025; 85610; 87040; 93005; 93306; 93970; 94640; 94760; 96365; 96375; 97161; 99285; J1650; J1940; J2920; J2930; J7512; J7605